=== PATIENT | female | born 1950 | race African-American/Black ===

== ENCOUNTER 2017-10-28 17:43 | Inpatient (IN) | payer MEDICARE ==
[2017-10-28 18:59] LABS: Hematocrit 33 % (35-47); Hemoglobin 11.3 g/dl (12.0-16.0); Mean Corpuscular HGB Conc 34 g/dl (31-36); Mean Corpuscular Hemoglobin 32 pg (27-31); Mean Corpuscular Volume 93 fL (80-97); Mean Platelet Volume 8.4 um3 (7.4-10.4); Platelet Count 236 10^3/ul (150-450); Red Blood Count 3.56 10^6/ul (4.00-5.40); Red Cell Distribution Width 15 % (10.5-15); White Blood Count 10.4 10^3/ul (3.5-10.8)
[2017-10-28 19:11] LABS: EGFR Non-African American 27.1 (>60)
[2017-10-28 19:21] LABS: ABS Basophils 0.1 10^3/ul (0-0.2); ABS Eosinophils 0 10^3/ul (0-0.6); ABS Lymphocytes 2.4 10^3/ul (1.0-4.8); ABS Monocytes 1.4 10^3/ul (0-0.8); ABS Neutrophils 6.5 10^3/ul (1.5-7.7); ABS Nucleated RBC 0.1 10^3/ul; Eosinophil % 0.4 % (0-6); Lymphocyte % 23.1 % (25-47); Nucleated Red Blood Cells % 0.8
[2017-10-28] MEDS ORDERED: NS 0.9% 1000 ML* 1,000 ML IV ONE ×3 (19:27→19:38)
--- NOTE | 2017-10-28 19:38 | RAD ---
INDICATION: Chest pain. COMPARISON: Comparison is made with a prior study from September 14, 2007. TECHNIQUE: A portable view of the chest was obtained. FINDINGS: The heart appears mildly enlarged. The lungs are hyperinflated. There is mild diffuse prominence of the interstitial markings. No pleural effusion is seen. There is a pleural-based density in the left midlung which may be artifactual. IMPRESSION: 1. FINDINGS SUGGESTIVE OF MILD CONGESTIVE HEART FAILURE. 2. POSSIBLE PLEURAL-BASED DENSITY IN THE LEFT MIDLUNG. RECOMMEND PA AND LATERAL CHEST FILMS FOR FURTHER EVALUATION.
[2017-10-28] MEDS ORDERED: Iodixanol* (CONTRAST) 320 MG/ML 100 ML SDV IV ONE (19:47)
--- NOTE | 2017-10-28 19:47 | RAD ---
INDICATION: Altered mental status. COMPARISON: There are no prior studies available for comparison. TECHNIQUE: Contiguous axial sections of the brain were obtained from the skull base to the vertex without contrast. FINDINGS: The ventricles, cisterns and sulci are within normal limits. No significant focal abnormality or mass effect is seen. There is no evidence for hemorrhage. There are multiple lytic lesions present throughout the calvarium. The visualized portion of the paranasal sinuses and mastoid air cells appear clear. IMPRESSION: 1. NO EVIDENCE FOR ACUTE INTRACRANIAL ABNORMALITY. 2. MULTIPLE LYTIC LESIONS ARE PRESENT THROUGHOUT THE CALVARIUM SUGGESTIVE OF A NEOPLASTIC PROCESSES SUCH MULTIPLE MYELOMA OR METASTATIC DISEASE.
--- NOTE | 2017-10-28 20:11 | ED ---
HPI Chest Pain - HPI Summary HPI Summary: Patient sent by primary care for evaluation of possible syncope, and AMS with possible tardive diskinesia type motions.. Patient alert and oriented, appears very dry, licking her lips repeatedly while talking. Patient herself complains of chronic bilateral lower back pain 5 months that has spread to bilateral rib pain 2 days, intermittent sternal chest tightness 3 today, syncopal episode with fall 2 nights ago. Denies injury from fall. CP described as tightness, intermittent, lasting 10-15 minutes, random onset, no radiation. Friend states patient perhaps has a little confusion, but otherwise at baseline mental status. Pt denies any new medications, SOB, fever, cough, sore throat, abdominal pain, N/V/D, change in urine or BM, . Medical history is asthma. Cardiac stress test 4 years ago. Patient has also been noncompliant with cholesterol and psych meds. Denies estrogen supplements, OCPs, recent surgery, unilateral leg pain, history of cancer. Nonsmoker, denies illegal drug use. - History of Current Complaint Chief Complaint: EDChestWallPain Time Seen by Provider: 10/28/17 18:35 Hx Obtained From: Patient Onset/Duration: Started Hours Ago, Started Days Ago, Started Weeks Ago Timing: Intermittent Initial Severity: Moderate Current Severity: Moderate Pain Intensity: 5 Pain Scale Used: 0-10 Numeric Chest Pain Location: Mid Sternal Chest Pain Radiates: No Character: Tightness Aggravating Factor(s): Nothing Alleviating Factor(s): Nothing Associated Signs and Symptoms: Positive: Chest Pain, Syncope, Back Pain - Allergy/Home Medications Allergies/Adverse Reactions: Allergies Allergy/AdvReac Type Severity Reaction Status Date / Time aspirin Allergy Unknown Verified 10/28/17 17:57 Reaction Details codeine Allergy Itching Verified 10/28/17 17:57 Home Medications: Home Medications Albuterol inh POWDER (NF) [Proair Respiclick] 2 puff INH Q6HR PRN 10/28/17 [ History Confirmed 10/28/17] Budesonide/Formote 160/4.5(NF) [Symbicort 160/4.5 (NF)] 2 puff INH BID 10/28/17 [History Confirmed 10/28/17] LORazepam TAB(*) [Ativan 0.5 MG TAB (*)] 0.5 mg PO BEDTIME PRN 10/28/17 [ History Confirmed 10/28/17] Montelukast Sodium TAB* [Singulair TAB*] 10 mg PO DAILY 10/28/17 [History Confirmed 10/28/17] PMH/Surg Hx/FS Hx/Imm Hx Endocrine/Hematology History: Denies: Hx Anticoagulant Therapy, Hx Diabetes History: Denies: Hx Dialysis Neurological History: Denies: Hx CVA - Cancer History Hx Chemotherapy: No Hx Radiation Therapy: No Infectious Disease History: No Infectious Disease History: Denies: Traveled Outside the [place] in Last 30 Days - Social History Alcohol Use: Rare Substance Use Type: Reports: None Smoking Status (MU): Never Smoked Tobacco Review of Systems Constitutional: Negative Eyes: Negative ENT: Negative Positive: Chest Pain Respiratory: Negative Gastrointestinal: Negative Genitourinary: Negative Musculoskeletal: Other Skin: Negative Neurological: Negative Psychological: Normal All Other Systems Reviewed And Are Negative: Yes Physical Exam - Summary Physical Exam Summary: Bilateral Ribs nontender to palpation. Lung sounds clear to auscultation bilaterally. Patient alert, oriented. No evidence of tardive dyskinesia type motion. Patient very dry, licking her lips every other word. Abdomen soft nontender. No peripheral edema. Triage Information Reviewed: Yes Vital Signs On Initial Exam: Initial Vitals Temp Pulse Resp BP Pulse Ox 100.1 F 107 15 134/82 98 10/28/17 17:54 10/28/17 17:54 10/28/17 17:54 10/28/17 17:54 10/28/17 17:54 Vital Signs Reviewed: Yes Appearance: Positive: Well-Appearing Skin: Positive: Warm Head/Face: Positive: Normal Head/Face Inspection Eyes: Positive: Normal Neck: Positive: Supple Respiratory/Lung Sounds: Positive: Clear to Auscultation Cardiovascular: Positive: Normal Abdomen Description: Positive: Nontender Musculoskeletal: Positive: Normal Neurological: Positive: Normal Psychiatric: Positive: Normal AVPU Assessment: Alert - [place] Coma Scale Best Eye Response: 4 - Spontaneous Best Motor Response: 6 - Obeys Commands Best Verbal Response: 5 - Oriented Coma Scale Total: 15 Diagnostics - Vital Signs Vital Signs Temp Pulse Resp BP Pulse Ox 10/28/17 17:54 100.1 F 107 15 134/82 98 - Laboratory Lab Results: Lab Results 07/26/18 07/26/18 07/26/18 Range/Units 18:46 18:46 18:46 WBC 10.4 (3.5-10.8) 10^3/ul RBC 3.56 L (4.00-5.40) 10^6/ul Hgb 11.3 L (12.0-16.0) g/dl Hct 33 L (35-47) % MCV 93 (80-97) fL MCH 32 H (27-31) pg MCHC 34 (31-36) g/dl RDW 15 (10.5-15) % Plt Count 236 (150-450) 10^3/ul MPV 8.4 (7.4-10.4) um3 Neut % (Auto) 62.4 (38-83) % Lymph % (Auto) 23.1 L (25-47) % [place] % (Auto) 13.3 H (0-7) % Eos % (Auto) 0.4 (0-6) % Baso % (Auto) 0.8 (0-2) % Absolute Neuts (auto) 6.5 (1.5-7.7) 10^3/ul Absolute Lymphs (auto) 2.4 (1.0-4.8) 10^3/ul Absolute Monos (auto) 1.4 H (0-0.8) 10^3/ul Absolute Eos (auto) 0 (0-0.6) 10^3/ul Absolute Basos (auto) 0.1 (0-0.2) 10^3/ul Absolute Nucleated RBC 0.1 10^3/ul Nucleated RBC % 0.8 D-Dimer, Quantitative (Less Than 230) ng/mL Sodium 134 L (135-145) mmol/L Potassium 3.3 L (3.5-5.0) mmol/L Chloride 93 L (101-111) mmol/L Carbon Dioxide 30 (22-32) mmol/L Anion Gap 11 (2-11) mmol/L BUN 37 H (6-24) mg/dL Creatinine 1.85 H (0.51-0.95) mg/dL Est GFR ( Amer) 32.8 (>60) Est GFR (Non-Af Amer) 27.1 (>60) BUN/Creatinine Ratio 20.0 (8-20) Glucose 108 H (70-100) mg/dL Lactic Acid 1.1 (0.5-2.0) mmol/L Calcium 16.2 H* (8.6-10.3) mg/dL Total Bilirubin 1.00 (0.2-1.0) mg/dL AST 26 (13-39) U/L ALT 13 (7-52) U/L Alkaline Phosphatase 126 H (34-104) U/L Troponin I 0.03 (<0.04) ng/mL B-Natriuretic Peptide ( - 100) pg/mL Total Protein 7.3 (6.4-8.9) g/dL Albumin 4.7 (3.2-5.2) g/dL Globulin 2.6 (2-4) g/dL Albumin/Globulin Ratio 1.8 (1-3) 10/28/17 10/28/17 Range/Units 18:46 19:43 WBC (3.5-10.8) 10^3/ul RBC (4.00-5.40) 10^6/ul Hgb (12.0-16.0) g/dl Hct (35-47) % MCV (80-97) fL MCH (27-31) pg MCHC (31-36) g/dl RDW (10.5-15) % Plt Count (150-450) 10^3/ul MPV (7.4-10.4) um3 Neut % (Auto) (38-83) % Lymph % (Auto) (25-47) % [place] % (Auto) (0-7) % Eos % (Auto) (0-6) % Baso % (Auto) (0-2) % Absolute Neuts (auto) (1.5-7.7) 10^3/ul Absolute Lymphs (auto) (1.0-4.8) 10^3/ul Absolute Monos (auto) (0-0.8) 10^3/ul Absolute Eos (auto) (0-0.6) 10^3/ul Absolute Basos (auto) (0-0.2) 10^3/ul Absolute Nucleated RBC 10^3/ul Nucleated RBC % D-Dimer, Quantitative > 1050 H (Less Than 230) ng/mL Sodium (135-145) mmol/L Potassium (3.5-5.0) mmol/L Chloride (101-111) mmol/L Carbon Dioxide (22-32) mmol/L Anion Gap (2-11) mmol/L BUN (6-24) mg/dL Creatinine (0.51-0.95) mg/dL Est GFR ( Amer) (>60) Est GFR (Non-Af Amer) (>60) BUN/Creatinine Ratio (8-20) Glucose (70-100) mg/dL Lactic Acid (0.5-2.0) mmol/L Calcium (8.6-10.3) mg/dL Total Bilirubin (0.2-1.0) mg/dL AST (13-39) U/L ALT (7-52) U/L Alkaline Phosphatase (34-104) U/L Troponin I (<0.04) ng/mL B-Natriuretic Peptide 36 ( - 100) pg/mL Total Protein (6.4-8.9) g/dL Albumin (3.2-5.2) g/dL Globulin (2-4) g/dL Albumin/Globulin Ratio (1-3) Result Diagrams: 10/28/17 18:46 10/28/17 18:46 Lab Statement: Any lab studies that have been ordered have been reviewed, and results considered in the medical decision making process. - Radiology cxr Xray Interpretation: Positive (See Comments) - Findings suggestive of mild congestive heart failure. Possible pleural based density in the left midlung. Recommend PA and lateral chest films for further evaluation - CT brain CT Interpretation: Positive (See Comments) - No evidence of acute intracranial abnormality. Multiple lytic lesions are present throughout the calvarium suggestive of a neoplastic process such as multiple myeloma or metastatic disease. CT Interpretation Completed By: Radiologist - EKG 1 Cardiac Rate: NL EKG Rhythm: Sinus Rhythm ST Segment: Non-Specific - T wave flattening in lateral leads. Ectopy: None Chest Pain Course/Dx - Course Course Of Treatment: Patient sent by primary care for evaluation of possible syncope, and AMS with possible tardive diskinesia type motions.. Patient alert and oriented, appears very dry, licking her lips repeatedly while talking. Patient herself complains of chronic bilateral lower back pain 5 months that has spread to bilateral rib pain 2 days, intermittent sternal chest tightness 3 today, syncopal episode with fall 2 nights ago. Denies injury from fall. CP described as tightness, intermittent, lasting 10-15 minutes, random onset, no radiation. Friend states patient perhaps has a little confusion, but otherwise at baseline mental status. Pt denies any new medications, SOB, fever, cough, sore throat, abdominal pain, N/V/D, change in urine or BM, . Medical history is asthma. Cardiac stress test 4 years ago. Patient has also been noncompliant with cholesterol and psych meds. Denies estrogen supplements, OCPs , recent surgery, unilateral leg pain, history of cancer. Nonsmoker, denies illegal drug use. Bilateral Ribs nontender to palpation. Lung sounds clear to auscultation bilaterally. Patient alert, oriented. No evidence of tardive dyskinesia type motion. Patient very dry, licking her lips every other word. Abdomen soft nontender. No peripheral edema. Hypercalcemic at 16.3 Elevated creatinine of 1.85. Elevated d-dimer of 1050. Hemoglobin 11.3. Mildly tachycardic initially. Vital signs and labs otherwise unremarkable. CT brain positive for lytic lesions, negative for acute process. Chest x-ray negative for acute process, potential pleural based density. Discussed patient with Dr. Freitas hospitalist and Dr. Bautista oncology. Dr. Bautista states recommends hydrating patient overnight, and starting zometta 4 mg IV in the morning when patient has positive urine output.. He also recommends deferring CT scan of chest abdomen and pelvis as patient's creatinine is 1.85. No prior creatinine level to compare to. Dr. Bautista states we can give patient heparin overnight and VQ scan can be done in the morning if we are concerned about PE or venous thrombosis due to elevated d-dimer. Admit. - Diagnoses Provider Diagnoses: Hypercalcemia Discharge - Sign-Out/Discharge Documenting (check all that apply): Patient Departure - Discharge Plan Condition: Stable Disposition: ADMITTED TO [facility] Referrals: Agustin Peterson MD [Primary Care Provider] - - Billing Disposition and Condition Condition: STABLE Disposition: Admitted to [facility]
[2017-10-28] MEDS ORDERED: Enoxaparin(*) 60 MG/0.6 ML SYR SUBCUT ONE (20:34)
[2017-10-29] MEDS ORDERED: Albuterol HFA INHALER* 8 gm MDI INH PRN (01:07)
[2017-10-29] MEDS ORDERED: LORazepam TAB(*) 0.5 MG PO PRN (01:07)
[2017-10-29] MEDS ORDERED: Melatonin 3 MG TAB PO PRN (01:10)
[2017-10-29] MEDS ORDERED: Acetaminophen TAB* 325 MG PO PRN (01:10)
[2017-10-29] MEDS ORDERED: Ondansetron ODT TAB* 4 MG PO PRN (01:10)
[2017-10-29] MEDS ORDERED: Ibuprofen TAB* 400 MG PO PRN (01:11)
--- NOTE | 2017-10-29 02:05 | HP ---
H&P (Free Text) History and Physical: PCP: Giovanna Peterson MD Date/Time: 10/29/2017 0030 CC: lethargy HPI: Mrs Neel Nolasco is a 67YO female HX asthma, depression in remission, & anxiety who presents with lethargy and progressive back & B rib pain since May 2017. She saw her PCP at that time and was referred to outpatient PT & urgent care nurse practitioner which initially helped. She then went to visit her homeland in [place] from the end of June through the end of August and upon returning to the [place] notes her pain has become progressively worse. She saw her PCP today and was advised to be evaluated at [facility]. She also admits to an unintentional 20# weight loss during this timeframe. Pain is worse with movement, but nothing seeming to make any lasting improvement. She has been having difficulty with constipation and mild SOB, but denies F/C, sweats, N/V/D, abnormal bleeding or other issues. ED evaluation was most notable for hypercalcemia at 16.2 confirmed with recheck at 15.8 for which admission consult was made. I requested CT of the brain WO which confirmed multiple lytic lesions concerning for neoplastic process. In light of this review of her CXR is suspicious for lytic lesions in the L humeral head. Shawna Bautista MD hem/onc was consulted by ED and advised against any further radiologic work up, recommending IVF hydration. As she has admitted to atypical chest discomfort, mild SOB, and her d-dimer is > 1050 she was given 1mg/kg enoxaparin SQ and a V/Q scan is ordered for the AM. PMedHx asthma depression, in remission anxiety Ambulatory Orders Albuterol inh POWDER (NF) [Proair Respiclick] 2 puff INH Q6HR PRN 10/28/17 Budesonide/Formote 160/4.5(NF) [Symbicort 160/4.5 (NF)] 2 puff INH BID 10/28/17 LORazepam TAB(*) [Ativan 0.5 MG TAB (*)] 0.5 mg PO BEDTIME PRN 10/28/17 Montelukast Sodium TAB* [Singulair TAB*] 10 mg PO DAILY 10/28/17 Allergies aspirin Allergy (Verified 10/28/17 17:57) Unknown Reaction Details codeine Allergy (Verified 10/28/17 17:57) Itching PSurgHx laparoscopic uterine myomectomy 1991 SocHx: quit smoking ~40 years ago, rare alcohol, no recreational drugs; , 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 alone; 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; full code status FamHx: negative for cancer ROS: as above, otherwise reviewed and all were negative vitals: Vital Signs Temp 37.8 C 10/28/17 17:54 Pulse 96 10/28/17 20:31 Resp 20 10/28/17 20:31 BP 137/81 10/28/17 20:31 Pulse Ox 99 10/28/17 20:31 Intake & Output 10/28/17 10/28/17 10/29/17 11:59 23:59 11:59 Intake Total 1999 Balance 1999 Weight 57.153 kg Intake: IV Fluids 1000 IVPB 1000 Constitutional: NAD, normally developed, well-nourished black female HEENM: atraumatic; sclera/conjunctiva: anicteric/clear; hearing: clinically intact; oropharynx: clear, mucosa moist Neck: soft tissue: normal; thyroid: normal Pulmonary: clear to auscultation bilaterally, good aeration, no accessory muscle use CV: RR/RR, normal S1S2, no carotid bruit, no jugular venous distention, 2+ B DP/ PT, no edema Abdominal: soft, non-distended, non-tender, no rebound/guarding/rigidity, normoactive bowel sounds, no hepatosplenomegaly or masses, no costovertebral angle tenderness Musculoskeletal: general: grossly intact, non-tender Integumental: normal appearance and texture of exposed skin Psychiatric orientation: AA&O to PPS affect: calm mood: pleasant eye contact: good content: reliable responses: mildly slowed insight: good Testing: Lab Results 10/28/17 10/28/17 10/28/17 Range/Units 18:46 18:46 18:46 WBC 10.4 (3.5-10.8) 10^3/ul RBC 3.56 L (4.00-5.40) 10^6/ul Hgb 11.3 L (12.0-16.0) g/dl Hct 33 L (35-47) % MCV 93 (80-97) fL MCH 32 H (27-31) pg MCHC 34 (31-36) g/dl RDW 15 (10.5-15) % Plt Count 236 (150-450) 10^3/ul MPV 8.4 (7.4-10.4) um3 Neut % (Auto) 62.4 (38-83) % Lymph % (Auto) 23.1 L (25-47) % [place] % (Auto) 13.3 H (0-7) % Eos % (Auto) 0.4 (0-6) % Baso % (Auto) 0.8 (0-2) % Absolute Neuts (auto) 6.5 (1.5-7.7) 10^3/ul Absolute Lymphs (auto) 2.4 (1.0-4.8) 10^3/ul Absolute Monos (auto) 1.4 H (0-0.8) 10^3/ul Absolute Eos (auto) 0 (0-0.6) 10^3/ul Absolute Basos (auto) 0.1 (0-0.2) 10^3/ul Absolute Nucleated RBC 0.1 10^3/ul Nucleated RBC % 0.8 D-Dimer, Quantitative (Less Than 230) ng/mL Sodium 134 L (135-145) mmol/L Potassium 3.3 L (3.5-5.0) mmol/L Chloride 93 L (101-111) mmol/L Carbon Dioxide 30 (22-32) mmol/L Anion Gap 11 (2-11) mmol/L BUN 37 H (6-24) mg/dL Creatinine 1.85 H (0.51-0.95) mg/dL Est GFR ( Amer) 32.8 (>60) Est GFR (Non-Af Amer) 27.1 (>60) BUN/Creatinine Ratio 20.0 (8-20) Glucose 108 H (70-100) mg/dL Lactic Acid 1.1 (0.5-2.0) mmol/L Calcium 16.2 H* (8.6-10.3) mg/dL Total Bilirubin 1.00 (0.2-1.0) mg/dL AST 26 (13-39) U/L ALT 13 (7-52) U/L Alkaline Phosphatase 126 H (34-104) U/L Troponin I 0.03 (<0.04) ng/mL B-Natriuretic Peptide ( - 100) pg/mL Total Protein 7.3 (6.4-8.9) g/dL Albumin 4.7 (3.2-5.2) g/dL Globulin 2.6 (2-4) g/dL Albumin/Globulin Ratio 1.8 (1-3) 10/28/17 10/28/17 10/28/17 Range/Units 18:46 19:43 19:43 WBC (3.5-10.8) 10^3/ul RBC (4.00-5.40) 10^6/ul Hgb (12.0-16.0) g/dl Hct (35-47) % MCV (80-97) fL MCH (27-31) pg MCHC (31-36) g/dl RDW (10.5-15) % Plt Count (150-450) 10^3/ul MPV (7.4-10.4) um3 Neut % (Auto) (38-83) % Lymph % (Auto) (25-47) % [place] % (Auto) (0-7) % Eos % (Auto) (0-6) % Baso % (Auto) (0-2) % Absolute Neuts (auto) (1.5-7.7) 10^3/ul Absolute Lymphs (auto) (1.0-4.8) 10^3/ul Absolute Monos (auto) (0-0.8) 10^3/ul Absolute Eos (auto) (0-0.6) 10^3/ul Absolute Basos (auto) (0-0.2) 10^3/ul Absolute Nucleated RBC 10^3/ul Nucleated RBC % D-Dimer, Quantitative > 1050 H (Less Than 230) ng/mL Sodium (135-145) mmol/L Potassium (3.5-5.0) mmol/L Chloride (101-111) mmol/L Carbon Dioxide (22-32) mmol/L Anion Gap (2-11) mmol/L BUN (6-24) mg/dL Creatinine (0.51-0.95) mg/dL Est GFR ( Amer) (>60) Est GFR (Non-Af Amer) (>60) BUN/Creatinine Ratio (8-20) Glucose (70-100) mg/dL Lactic Acid (0.5-2.0) mmol/L Calcium 15.8 H* (8.6-10.3) mg/dL Total Bilirubin (0.2-1.0) mg/dL AST (13-39) U/L ALT (7-52) U/L Alkaline Phosphatase (34-104) U/L Troponin I (<0.04) ng/mL B-Natriuretic Peptide 36 ( - 100) pg/mL Total Protein (6.4-8.9) g/dL Albumin (3.2-5.2) g/dL Globulin (2-4) g/dL Albumin/Globulin Ratio (1-3) 10/28/17 10/28/17 10/29/17 Range/Units 21:15 21:15 00:18 WBC (3.5-10.8) 10^3/ul RBC (4.00-5.40) 10^6/ul Hgb (12.0-16.0) g/dl Hct (35-47) % MCV (80-97) fL MCH (27-31) pg MCHC (31-36) g/dl RDW (10.5-15) % Plt Count (150-450) 10^3/ul MPV (7.4-10.4) um3 Neut % (Auto) (38-83) % Lymph % (Auto) (25-47) % [place] % (Auto) (0-7) % Eos % (Auto) (0-6) % Baso % (Auto) (0-2) % Absolute Neuts (auto) (1.5-7.7) 10^3/ul Absolute Lymphs (auto) (1.0-4.8) 10^3/ul Absolute Monos (auto) (0-0.8) 10^3/ul Absolute Eos (auto) (0-0.6) 10^3/ul Absolute Basos (auto) (0-0.2) 10^3/ul Absolute Nucleated RBC 10^3/ul Nucleated RBC % D-Dimer, Quantitative (Less Than 230) ng/mL Sodium (135-145) mmol/L Potassium (3.5-5.0) mmol/L Chloride (101-111) mmol/L Carbon Dioxide (22-32) mmol/L Anion Gap (2-11) mmol/L BUN (6-24) mg/dL Creatinine (0.51-0.95) mg/dL Est GFR ( Amer) (>60) Est GFR (Non-Af Amer) (>60) BUN/Creatinine Ratio (8-20) Glucose (70-100) mg/dL Lactic Acid (0.5-2.0) mmol/L Calcium (8.6-10.3) mg/dL Total Bilirubin (0.2-1.0) mg/dL AST (13-39) U/L ALT (7-52) U/L Alkaline Phosphatase (34-104) U/L Troponin I 0.03 0.03 (<0.04) ng/mL B-Natriuretic Peptide 37 ( - 100) pg/mL Total Protein (6.4-8.9) g/dL Albumin (3.2-5.2) g/dL Globulin (2-4) g/dL Albumin/Globulin Ratio (1-3) ECG, personally reviewed: sinus tachycardia rate 101, diffuse ST-T flattening CXR, personally reviewed: IMPRESSION: 1. FINDINGS SUGGESTIVE OF MILD CONGESTIVE HEART FAILURE. 2. POSSIBLE PLEURAL-BASED DENSITY IN THE LEFT MIDLUNG. RECOMMEND PA AND LATERAL CHEST FILMS FOR FURTHER EVALUATION. CT brain WO, personally reviewed: IMPRESSION: 1. NO EVIDENCE FOR ACUTE INTRACRANIAL ABNORMALITY. 2. MULTIPLE LYTIC LESIONS ARE PRESENT THROUGHOUT THE CALVARIUM SUGGESTIVE OF A NEOPLASTIC PROCESSES SUCH MULTIPLE MYELOMA OR METASTATIC DISEASE. Impression: 67F HX asthma presents with findings of hypercalcemia, diffuse lytic lesion of the calvarum, & diffuse bony pain highly suspicious for neoplastic process DIAGNOSIS & PLAN Primary hypercalcemia of malignancy : Shawna Bautista MD hem/onc consulted by ED, advised IVF hydration & will evaluate in AM : pain control atypical chest discomfort, mild SOB, & elevated d-dimer : unable to perform CTA 2nd renal function : 1mg/kg enoxaparin SQ : V/Q scan in AM CKD stg 4, suspect acute on chronic : IVFs & trend : avoid nephrotoxic agents Secondary asthma : continue home regimen anxiety : lorazepam 0.5mg PO Q8H PRN Admission Rational: Inpatient for hem/onc evaluation not anticipated to be complete in order to allow discharge w/i 48h DVTp: enoxaparin SQ Code Status: full HCP: Joe Shaikh
[2017-10-29] MEDS: traMADol TAB* 50 MG PO PRN ×2 (03:04→10:57)
[2017-10-29] MEDS: NS 0.9% 1000 ML* 1,000 ML IV SCH ×2 (05:03→21:28)
[2017-10-29] MEDS: Omeprazole CAP* 20 MG PO SCH (05:52)
[2017-10-29 06:27] LABS: Hematocrit 26 % (35-47); Hemoglobin 9.2 g/dl (12.0-16.0); Mean Corpuscular HGB Conc 35 g/dl (31-36); Mean Corpuscular Hemoglobin 32 pg (27-31); Mean Corpuscular Volume 92 fL (80-97); Mean Platelet Volume 7.7 um3 (7.4-10.4); Platelet Count 177 10^3/ul (150-450); Red Blood Count 2.88 10^6/ul (4.00-5.40); Red Cell Distribution Width 15 % (10.5-15); White Blood Count 7.6 10^3/ul (3.5-10.8)
[2017-10-29 06:44] LABS: EGFR Non-African American 32.1 (>60)
[2017-10-29] MEDS: Mometasone/Formoter 200/5 MDI INH SCH ×2 (08:02→20:14)
--- NOTE | 2017-10-29 09:33 | RAD ---
Indication: Chest tightness, mild shortness of breath, elevated d-dimer. Comparison: October 28, 2017 chest radiograph. Technique: Following administration of 10.900 mCi xenon-133 by inhalation anterior and posterior ventilation images were obtained. Following the administration of 6.400 mCi of Tc-99m macroaggregated albumin, perfusion images were obtained in multiple projections. Report: The ventilation pattern is uniform with evidence for bilateral air trapping. Negative for segmental or subsegmental perfusion defects. IMPRESSION: #. No scintigraphic evidence for pulmonary embolism. #. Bilateral air trapping consistent with obstructive lung disease.
--- NOTE | 2017-10-29 10:32 | RAD ---
INDICATION: Follow-up to chest x-ray October 28, 2017. This earlier examination suggested pleural-based left chest masses. Lytic lesions on CT brain. COMPARISON: Chest x-ray October 28, 2017; CT brain 7 26,000 TECHNIQUE: PA and lateral dual-energy views were obtained. FINDINGS: Bones/Soft Tissues: There are apparent areas of lytic change in the osseous structures. Cardiomediastinal: The cardiomediastinal silhouette is normal. Lungs: There are peripheral masses in the left mid lower lung field. There is underlying chronic interstitial change.. There are chronic interstitial lung changes Pleura: There are no pleural effusions. Other: None IMPRESSION: LEFT CHEST MASSES. LYTIC OSSEOUS LESIONS.
[2017-10-29] MEDS: Docusate CAP* 100 MG PO SCH ×2 (10:40→21:25)
[2017-10-29] MEDS: Montelukast Sodium TAB* 10 MG PO SCH (10:40)
[2017-10-29] MEDS: KCL 20 MEQ/100 ML IVPREMIX* 20 MEQ/100 ML BAG IV SCH ×2 (10:40→15:55)
--- NOTE | 2017-10-29 10:49 | PN ---
Subjective Date of Service: 10/29/17 Interval History: HOSPITALIST PROGRESS NOTE Patient seen and examined at bedside. Care reviewed and d/w Gemma Bess RN. She feels a little better this AM. States her body aches are less intense, denies CP or palpitations. Describes >6 months of body aches she associated with exercise. She retired recently and is making arrangements to move back to [facility]. Was there from June to August and unfortunately her 96yo mother passed during her visit. She states she's grieving and not eating well, and attributed her weight loss to that. ROS - 14 point ROS performed and all pertinent negative and positive findings as above. Family History: Unchanged from Admission Social History: Unchanged from Admission Past Medical History: Unchanged from Admission Objective Active Medications: Acetaminophen (Tylenol Tab*) 650 mg PO Q6H PRN PRN Reason: FEVER/PAIN Albuterol (Ventolin Hfa Inhaler*) 2 puff INH Q6H PRN PRN Reason: SHORTNESS OF BREATH Last Admin: 10/29/17 03:03 Dose: 2 puff Docusate Sodium (Colace Cap*) 200 mg PO BID [facility]INA Sodium Chloride (Ns 0.9% 1000 Ml*) 1,000 mls @ 150 mls/hr IV PER RATE YINA Last Admin: 10/29/17 05:03 Dose: 150 mls/hr Potassium Chloride (Potassium Chloride 20 Meq/100 Ml Ivpremix*) 20 meq in 100 mls @ 50 mls/hr IV Q2H YINA Stop: 10/29/17 12:59 Ibuprofen (Motrin Tab*) 400 mg PO Q8H PRN PRN Reason: PAIN Lorazepam (Ativan Tab(*)) 0.5 mg PO Q6H PRN PRN Reason: ANXIETY Melatonin (Melatonin) 3 mg PO BEDTIME PRN; Protocol PRN Reason: Sleep Mometasone Furoate/Formoterol Fumar (Dulera 200/5 Mdi*) 2 puff INH BID YINA; Protocol Last Admin: 10/29/17 08:02 Dose: 2 puff Montelukast Sodium (Singulair Tab*) 10 mg PO DAILY [facility]INA Omeprazole (Prilosec Cap*) 20 mg PO DAILY@0600 YINA Last Admin: 10/29/17 05:52 Dose: 20 mg Ondansetron HCl (Zofran Odt Tab*) 4 mg PO Q6H PRN PRN Reason: n/v Tramadol HCl (Ultram*) 50 mg PO Q6H PRN PRN Reason: PAIN Last Admin: 10/29/17 03:04 Dose: 50 mg Vital Signs - 8 hr 10/29/17 10/29/17 10/29/17 02:55 03:04 05:04 Temperature 98.1 F Pulse Rate 86 Respiratory 12 12 14 Rate Blood Pressure 131/75 (mmHg) O2 Sat by Pulse 97 Oximetry Oxygen Devices in Use Now: None Appearance: Plesant lady lying in bed in NAD. Eyes: No Scleral Icterus Ears/Nose/Mouth/Throat: Mucous Membranes Moist Neck: Trachea Midline Respiratory: Symmetrical Chest Expansion and Respiratory Effort, Clear to Auscultation Cardiovascular: NL Sounds; No Murmurs; No JVD, RRR Abdominal: NL Sounds; No Tenderness; No Distention Neurological: Alert and Oriented x 3, NL Muscle Strength and Tone Result Diagrams: 10/29/17 06:17 10/29/17 06:17 Assess/Plan/Problems-Billing Assessment: Mrs Neel Nolasco is a 67yo F with PMH of depression, anxiety, asthma, who presents with months of body aches, back and ribs pain, 20 pound weight loss, found to have hypercalcemia, likely secondary to multiple myeloma. - Patient Problems (1) Hypercalcemia Comment: - Probably secondary to multiple myeloma. - Continue IVF and add Zoledronic acid. - Awaiting Onc evaluation. (2) Multiple myeloma Comment: - Her presentation with hypercalcemia, lytic lesions, anemia, renal failure, is very suggestive of MM. - Patient states she had "issues with white cells 20 years ago" and was offered a bone marrow biopsy, but declined it. - Check SPEP/UPEP. - Awaiting Oncology consultation. (3) Hypokalemia Comment: - Replete. (4) Hypomagnesemia Comment: - Replete. (5) TEE (acute kidney injury) Comment: - Secondary to probable MM. - Continue to monitor. (6) D-dimer, elevated Comment: - Likely secondary to malignancy. - V/Q scan negative for PE. Check LE doppler to r/o DVT. (7) DVT prophylaxis Comment: - SQ heparin. (8) Full code status Status and Disposition: Inpatient.
[2017-10-29] MEDS ORDERED: ZOLEDRONIC ACID IVPB ONE (10:56)
[2017-10-29] MEDS ORDERED: Magnesium Sulfate IV* 3 GM in NS 0.9% 100 ML* 100 ML IVPB ONE (10:56)
[2017-10-29] MEDS ORDERED: NS 0.9% IVPB ONE (10:56)
--- NOTE | 2017-10-29 12:40 | RAD ---
INDICATION: Malignancy, recent trip and leg pain evaluate for DVT. COMPARISON: Comparison is made with a prior study from November 07, 2014. TECHNIQUE: Multiple real-time, color flow and Doppler tracings of both lower extremities were obtained. FINDINGS: The common femoral, femoral, profunda femoral and popliteal veins all demonstrate normal compressibility, augmentation with compression and phasic response with respiration. The posterior tibial and peroneal veins demonstrate normal compressibility and augmentation with compression. IMPRESSION: NO EVIDENCE FOR DEEP VENOUS THROMBOSIS.
[2017-10-29] MEDS: Heparin VIAL(*) 5000 UNITS/ML VIAL (FIVE THOUSAND) SUBCUT SCH ×2 (16:08→21:25)
[2017-10-29] MEDS ORDERED: Zoledronic Acid* 4 MG in NS 0.9% 100 ML* 95 ML IVPB ONE (19:01)
--- NOTE | 2017-10-29 23:15 | CONS ---
CONSULTATION REPORT: DATE OF CONSULT: 10/29/17 REASON FOR CONSULTATION: Hypercalcemia. HISTORY OF PRESENT ILLNESS: Ms. Neel Nolasco is a 67-year-old female with history of multiple medical problems, but she reports has generally been in good health. She exercises regularly and remains very active. She lives alone and is independent of her ADLs and IADLS. She describes progressive back and rib pain as well as groin pain going back to May 2017. She noticed exercising when trying to do new weights. Per history from Dr. Freitas, she had a referral to PT and a chiropractor that initially helped. In June, she went to [place], [place] origin for a visit, she returned to [place] in August. Over the past 2 months, the pain has gotten significantly worse. She had followup with Dr. Peterson on the 10/28/17, and was advised that she go to the emergency room to be evaluated. She also describes weight loss of 20 pounds, constipation, decreased urination, dry mouth. She came to the emergency room and noted to have a calcium of 16.2 associated with a creatinine of 1.85, potassium of 3.3, and sodium of 134. Liver function tests showed an albumin of 4.7 with a globulin 2.6 and normal LFTs. She had a CT scan of the head that showed no acute parenchymal brain disease, but she did have multiple lytic lesions in the skull. She was admitted, placed on IV fluids , developed shortness of breath and had a V/Q scan as well as a lower extremity Doppler that were both negative for thrombosis. In the hospital, she has been stable. On IV fluid, she has had an increase in urine output, 400 from 7 a.m. to 3 p.m. and 600 mL from 1500 to 1900. She is incoherent on exam and is quite meandering. She denies being in pain at this time, but says her pain did go to 10/10, before coming to the hospital. She ate lunch and she plans to eat dinner. PAST MEDICAL HISTORY (PER CHART): 1. Asthma. 2. Depression. 3. Anxiety. PAST SURGICAL HISTORY: Laparoscopic uterine myomectomy in 1991. MEDICATIONS: On admission: 1. Symbicort 160/4.5 two puffs b.i.d. 2. Lorazepam 0.5 mg at bedtime p.r.n. 3. Singulair 10 mg daily. ALLERGIES: ASPIRIN and CODEINE. FAMILY HISTORY: Not obtainable today. SOCIAL HISTORY: Remote smoking, quit 40 years ago. She denies drinking. She is and lives alone, no children. 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 REVIEW OF SYSTEMS: As per HPI, otherwise negative. Cannot do complete review of systems with her current mental status. PHYSICAL EXAM: Temperature 98.4, BP 111/59, pulse rate 89, respirations 15, O2 sat 97%. HEENT: Mucosa dry. No lesions, no lymphadenopathy, no JVD. Lungs: Clear to auscultation. Heart: Regular rate and rhythm. S1, S2. No murmur, rubs or gallops. Breasts: No nodules. No axillary lymphadenopathy. Nodes: No peripheral lymphadenopathy. Abdomen: Mild distention. No hepatosplenomegaly. Good bowel sounds. Nontender. Extremities: She got pulses x4. No edema. Normal skin turgor and tone. Neurologic: She is oriented to being in the hospital, but is not a coherent historian at this moment. She is moving all 4 extremities and following commands without difficulty, grossly nonfocal. LABORATORY DATA: As noted above, Ca after hydration came down slightly at 14.2 and creatinine went to 1.6. Potassium is 2.9 this morning. Hemoglobin is 9.2 with normal MCV, platelets 177, white count 7.6 with predominantly neutrophils. Review of an old blood work shows an episode in 2012, which showed AST of 800 and had fairly extensive serologic workup at that time including multiple infectious studies. There is no discharge summary, so she would now presume with an outpatient workup. We will need to obtain further records next business day. ASSESSMENT AND PLAN: A 67-year-old female who presents with hypercalcemia and lytic lesions on a CT scan of the skull, highly suspicious for hypercalcemia of malignancy. Differential diagnosis includes multiple myeloma, could be metastatic solid tumor including renal cell cancer, lung cancer, and metastatic breast cancer unlikely without blastic components. She has responded well to hydration with increased urine output, slight decrease in creatinine. 1. Continue IV fluids, 150 cc now with normal saline is reasonable. 2. Agree with Zometa,given today. 3. Follow potassium and magnesium, expect further decrease as she is hydrated. 4. We will obtain a CT scan of the chest, abdomen, and pelvis, noncontrast to evaluate for both solid tumor and additional lytic lesions. 5. Serologic studies today, beta-2 microglobulin, protein electrophoresis, kappa and lambda light chains as well as a PTH. 6. We will need bone marrow biopsy if CT scan is unrevealing on Wednesday 7. Continue to follow closely during hospitalization. [id number]/[facility] #: [id number] [facility]
[2017-10-30] MEDS: NS 0.9% 1000 ML* 1,000 ML IV SCH (04:15)
[2017-10-30] MEDS: Omeprazole CAP* 20 MG PO SCH (06:00)
[2017-10-30] MEDS: Heparin VIAL(*) 5000 UNITS/ML VIAL (FIVE THOUSAND) SUBCUT SCH ×2 (06:00→13:14)
[2017-10-30 06:53] LABS: Hematocrit 26 % (35-47); Mean Corpuscular HGB Conc 35 g/dl (31-36); Mean Corpuscular Hemoglobin 32 pg (27-31); Mean Corpuscular Volume 92 fL (80-97); Mean Platelet Volume 7.7 um3 (7.4-10.4); Platelet Count 171 10^3/ul (150-450); Red Blood Count 2.83 10^6/ul (4.00-5.40); Red Cell Distribution Width 15 % (10.5-15); White Blood Count 6.7 10^3/ul (3.5-10.8)
--- NOTE | 2017-10-30 07:08 | RAD ---
INDICATION: Hypercalcemia. Lytic lesions. COMPARISON: CT brain October 28, 2017; chest x-ray October 29, 2017; pelvic sonogram September 25, 2011 TECHNIQUE: Noncontrast axial source images were obtained from the thoracic inlet to the symphysis pubis. Oral contrast was administered. Coronal and sagittal reconstructed images were acquired. CHEST FINDINGS: Neck/thyroid: The visualized neck to include the thyroid appear normal. Chest wall: There are diffuse lytic foci throughout the axial and appendicular skeleton. There is no supraclavicular, infraclavicular, or axillary lymphadenopathy. Lungs : There is compression atelectasis in the right lung base. The remaining lung tinsley are essentially clear. Cardiomediastinal structures: The heart is normal in size. There is no pericardial effusion. There is no evidence of aortic aneurysm or dissection. The pulmonary vessels appear normal. There is no mediastinal or hilar adenopathy. The esophagus appears normal. Pleura : There are numerous, lateral, pleural-based metastatic lesions measure up to 3.5 x 2.3 cm. There is a small right-sided pleural effusion. ABDOMINAL/PELVIC FINDINGS: Liver: No focal abnormality on noncontrast evaluation. Gallbladder: There are no calcified gallstones. There is no evidence of wall thickening or pericholecystic fluid. Spleen: No focal abnormalities on noncontrast evaluation. Pancreas: Limited evaluation without contrast. No discrete masses are seen. Adrenal glands: There is no evidence of adrenal mass. Kidneys: No renal mass is identified. There are several tiny punctate calculi in the left kidney. Adenopathy: There is no evidence of adenopathy by size criteria. Fluid collections: There are no free or localized fluid collections. Vessels:The aorta and IVC appear normal GI tract: There are no acute CT bowel findings. There is no obstruction. The stomach and small bowel appear normal. The lower GI tract is unremarkable. Pelvic organs: There calcified fibroids. There is a solid left adnexal mass or less likely this is an exophytic fibroid. This mass measures 4 cm and would be better evaluated with pelvic sonography Bladder: There are no bladder masses. Abdominal and pelvic soft tissues: The extraperitoneal abdominal and pelvic soft tissues appear normal.. Osseous structures: There are extensive lytic lesions throughout the axial and appendicular skeleton. 1 lytic lesions involve T11 which represents an expansile lesion and may lead to canal and right foraminal stenosis. There is also expansile lesion of the proximal right femur with cortical breakthrough into the lesser trochanter. This patient is at risk for complete fracture with ambulation. Extensive sacral lytic lesions are also noted. IMPRESSION: 1. Extensive lytic lesions of the axial and appendicular skeleton. The patient is at risk for displaced right hip fracture. 2. Pleural-based metastasis. 3. Small right-sided effusion 4. Left adnexal mass versus exophytic fibroid.
[2017-10-30 07:13] LABS: EGFR Non-African American 37.1 (>60)
[2017-10-30 07:43] LABS: ABS Basophils 0 10^3/ul (0-0.2); ABS Eosinophils 0 10^3/ul (0-0.6); ABS Lymphocytes 1.5 10^3/ul (1.0-4.8); ABS Monocytes 0.6 10^3/ul (0-0.8); ABS Neutrophils 4.5 10^3/ul (1.5-7.7); ABS Nucleated RBC 0 10^3/ul; Eosinophil % 0.5 % (0-6); Lymphocyte % 23.1 % (25-47); Nucleated Red Blood Cells % 0.4
[2017-10-30] MEDS: Montelukast Sodium TAB* 10 MG PO SCH (07:45)
[2017-10-30] MEDS: Docusate CAP* 100 MG PO SCH (07:45)
[2017-10-30] MEDS: Mometasone/Formoter 200/5 MDI INH SCH ×2 (08:14→20:03)
[2017-10-30] MEDS ORDERED: Morphine INJ* 2 MG/ML 1 ML SYRINGE (TWO MG - NEW SYRINGE VERSION) IV PRN (09:24)
--- NOTE | 2017-10-30 09:28 | PN ---
Progress Note - Progress Note Date of Service: 10/30/17 SOAP: Subjective: still in pain this am but has to date been unwilling to take pain meds. Objective: Vital Signs Temp Pulse Resp BP Pulse Ox 98.6 F 80 16 130/65 96 10/30/17 07:34 10/30/17 08:17 10/30/17 07:34 10/30/17 07:34 10/30/17 08:17 sitting up clearly in pain (refusing pain meds) op dry dec bs bases II/ christie soft nt +Bs no le edema no pedro A+O x 3 Laboratory Results - last 24 hr 10/29/17 10/29/17 10/30/17 06:17 09:52 06:34 WBC 6.7 RBC 2.83 L Hgb 9.0 L Hct 26 L MCV 92 MCH 32 H MCHC 35 RDW 15 Plt Count 171 MPV 7.7 Neut % (Auto) 67.7 Lymph % (Auto) 23.1 L [place] % (Auto) 8.4 H Eos % (Auto) 0.5 Baso % (Auto) 0.3 Absolute Neuts (auto) 4.5 Absolute Lymphs (auto) 1.5 Absolute Monos (auto) 0.6 Absolute Eos (auto) 0 Absolute Basos (auto) 0 Absolute Nucleated RBC 0 Nucleated RBC % 0.4 Sodium Potassium Chloride Carbon Dioxide Anion Gap BUN Creatinine Est GFR ( Amer) Est GFR (Non-Af Amer) BUN/Creatinine Ratio Glucose Calcium Magnesium 1.5 L PTH Intact 1.3 Calcium (PTH Intact) 14.1 H* 10/30/17 06:34 WBC RBC Hgb Hct MCV MCH MCHC RDW Plt Count MPV Neut % (Auto) Lymph % (Auto) [place] % (Auto) Eos % (Auto) Baso % (Auto) Absolute Neuts (auto) Absolute Lymphs (auto) Absolute Monos (auto) Absolute Eos (auto) Absolute Basos (auto) Absolute Nucleated RBC Nucleated RBC % Sodium 137 Potassium 3.2 L Chloride 105 Carbon Dioxide 27 Anion Gap 5 BUN 23 Creatinine 1.41 H Est GFR ( Amer) 44.9 Est GFR (Non-Af Amer) 37.1 BUN/Creatinine Ratio 16.3 Glucose 100 Calcium 12.3 H Magnesium PTH Intact Calcium (PTH Intact) Acetaminophen (Tylenol Tab*) 650 mg PO Q6H PRN PRN Reason: FEVER/PAIN Albuterol (Ventolin Hfa Inhaler*) 2 puff INH Q6H PRN PRN Reason: SHORTNESS OF BREATH Last Admin: 10/29/17 03:03 Dose: 2 puff Docusate Sodium (Colace Cap*) 200 mg PO BID [facility] Last Admin: 10/30/17 07:45 Dose: 200 mg Heparin Sodium (Porcine) (Heparin Vial(*)) 5,000 units SUBCUT Q8HR [facility] Last Admin: 10/30/17 06:00 Dose: 5,000 units Sodium Chloride (Ns 0.9% 1000 Ml*) 1,000 mls @ 150 mls/hr IV PER RATE [facility] Last Admin: 10/30/17 04:15 Dose: 150 mls/hr Ibuprofen (Motrin Tab*) 400 mg PO Q8H PRN PRN Reason: PAIN Lorazepam (Ativan Tab(*)) 0.5 mg PO Q6H PRN PRN Reason: ANXIETY Melatonin (Melatonin) 3 mg PO BEDTIME PRN; Protocol PRN Reason: Sleep Mometasone Furoate/Formoterol Fumar (Dulera 200/5 Mdi*) 2 puff INH BID [facility]; Protocol Last Admin: 10/30/17 08:14 Dose: 2 puff Montelukast Sodium (Singulair Tab*) 10 mg PO DAILY [facility] Last Admin: 10/30/17 07:45 Dose: 10 mg Morphine Sulfate (Morphine Inj (Syringe)*) 2 mg IV Q4H PRN PRN Reason: PAIN Omeprazole (Prilosec Cap*) 20 mg PO DAILY@0600 [facility] Last Admin: 10/30/17 06:00 Dose: 20 mg Ondansetron HCl (Zofran Odt Tab*) 4 mg PO Q6H PRN PRN Reason: n/v Tramadol HCl (Ultram*) 50 mg PO Q6H PRN PRN Reason: PAIN Last Admin: 10/29/17 10:57 Dose: 50 mg Assessment: 67 yo F presenting with hypercalcemia and diffuse bony lesions as well as pleural based lesions. In discussing with Dr. Vargas he feels that the pleural based lesions are metastatic and not expansive from the ribs. Concerningly she has a lesion in her right hip that is impending fracture. I have discussed with ortho and the primary team, as well as the patient that I have recommended consideration of rodding this lesion for stability, which will also give us tissue for a diagnosis. She seems to be in agreement with this but would like to discuss with a friend. This will be done at a specialty center. hypercalcemia: improving, got zometa last evening can consider another dose of lasix
--- NOTE | 2017-10-30 09:29 | PN ---
Progress Note - Progress Note Date of Service: 10/30/17 Note: Pt seen and examined. Large lytic lesion in right hip spanning neck and trochanter. Impending fracture. Will transfer to [place] for definitive management.
--- NOTE | 2017-10-30 12:36 | PN ---
Subjective Date of Service: 10/30/17 Interval History: HOSPITALIST PROGRESS NOTE Patient seen and examined at bedside. Care reviewed and d/w Tamy Serrano RN. She c/o diffuse pain, especially around her rib cage. Upset about the news about her diagnosis, but states she has a strong gatito. Family History: Unchanged from Admission Social History: Unchanged from Admission Past Medical History: Unchanged from Admission Objective Active Medications: Acetaminophen (Tylenol Tab*) 650 mg PO Q6H PRN PRN Reason: FEVER/PAIN Albuterol (Ventolin Hfa Inhaler*) 2 puff INH Q6H PRN PRN Reason: SHORTNESS OF BREATH Last Admin: 10/29/17 03:03 Dose: 2 puff Docusate Sodium (Colace Cap*) 200 mg PO BID [facility] Last Admin: 10/30/17 07:45 Dose: 200 mg Heparin Sodium (Porcine) (Heparin Vial(*)) 5,000 units SUBCUT Q8HR [facility] Last Admin: 10/30/17 06:00 Dose: 5,000 units Sodium Chloride (Ns 0.9% 1000 Ml*) 1,000 mls @ 150 mls/hr IV PER RATE [facility] Last Admin: 10/30/17 04:15 Dose: 150 mls/hr Ibuprofen (Motrin Tab*) 400 mg PO Q8H PRN PRN Reason: PAIN Lorazepam (Ativan Tab(*)) 0.5 mg PO Q6H PRN PRN Reason: ANXIETY Melatonin (Melatonin) 3 mg PO BEDTIME PRN; Protocol PRN Reason: Sleep Mometasone Furoate/Formoterol Fumar (Dulera 200/5 Mdi*) 2 puff INH BID [facility]; Protocol Last Admin: 10/30/17 08:14 Dose: 2 puff Montelukast Sodium (Singulair Tab*) 10 mg PO DAILY [facility] Last Admin: 10/30/17 07:45 Dose: 10 mg Morphine Sulfate (Morphine Inj ((Syringe))*) 2 mg IV Q4H PRN PRN Reason: PAIN Omeprazole (Prilosec Cap*) 20 mg PO DAILY@0600 [facility] Last Admin: 10/30/17 06:00 Dose: 20 mg Ondansetron HCl (Zofran Odt Tab*) 4 mg PO Q6H PRN PRN Reason: n/v Tramadol HCl (Ultram*) 50 mg PO Q6H PRN PRN Reason: PAIN Last Admin: 10/29/17 10:57 Dose: 50 mg Vital Signs - 8 hr 10/30/17 10/30/17 10/30/17 07:34 08:00 08:17 Temperature 98.6 F Pulse Rate 98 80 Respiratory 16 16 Rate Blood Pressure 130/65 (mmHg) O2 Sat by Pulse 99 96 Oximetry Oxygen Devices in Use Now: None Appearance: Pleasant lady sitting up in bed in NAD. Eyes: No Scleral Icterus Ears/Nose/Mouth/Throat: Mucous Membranes Moist Neck: Trachea Midline Respiratory: Symmetrical Chest Expansion and Respiratory Effort, Clear to Auscultation Cardiovascular: RRR - Normal S1 and S2, +SM Neurological: Alert and Oriented x 3, NL Muscle Strength and Tone Result Diagrams: 10/30/17 06:34 10/30/17 06:34 Assess/Plan/Problems-Billing Assessment: Mrs Neel Nolasco is a 67yo F with PMH of depression, anxiety, asthma, who presents with months of body aches, back and ribs pain, 20 pound weight loss, found to have hypercalcemia, likely secondary to multiple myeloma. - Patient Problems (1) Hypercalcemia Comment: - Continue IVF, received Zoledronic acid yesterday and Ca is 12.3. - Onc evaluation appreciated - hypercalcemia of malignancy secondary to multiple myeloma vs metastatic solid tumor. (2) Bone metastasis Comment: - Unclear primary at this time, but CT chest/abd/pelvis showed extensive lytic lesions of the axial and appendicular skeleton. Her right hip is at very high risk for fracture and Orthopedics recommended transfer to a higher level of care - contacted [facility] and [place] - no bed available at this time. (3) Hypokalemia Comment: - Replete. (4) Hypomagnesemia Comment: - Replete. (5) TEE (acute kidney injury) Comment: - Continue to monitor. (6) D-dimer, elevated Comment: - Likely secondary to malignancy. - V/Q scan and LE doppler negative. (7) DVT prophylaxis Comment: - SQ heparin. (8) Full code status Status and Disposition: Inpatient.
[2017-10-30] MEDS ORDERED: Magnesium Sulfate IV* 3 GM in NS 0.9% 100 ML* 100 ML IVPB ONE (12:41)
[2017-10-30] MEDS ORDERED: Polyethylene Glycol 3350* 17 GM PACKET PO SCH (14:00)
--- NOTE | 2017-10-30 18:00 | CONS ---
CC: PCP CONSULTATION REPORT: DATE OF CONSULT: 10/30/17 CHIEF COMPLAINT: Right hip lesion. HISTORY OF PRESENT ILLNESS: Briefly, Estrellita Bustamante is a 67-year-old female who has had multiple medical issues and complains of more pain in the back and her ribs, worse for the last 10 days that has been going on since May at least. She states that she went to a chiropractor initially since she went to [place] where she is from and returned to [place] in August. In the last 2 months, pain has gotten a lot worse. She followed with her PCP and went to the emergency room. She has had a recent weight loss of 20 pounds, constipation, urinary retention, and dry mouth. She had an elevated calcium on admission with an elevated creatinine and recently had a CT chest, abdomen, and pelvis, which demonstrated multiple lytic lesions. There is particularly 1 large one in her right femoral neck. At this point, I was consulted. She states that she has no real hip pain. She is able to ambulate, but very slowly. She has more pain in the chest wall that has been bothering her. She denies any numbness or tingling. No bony pain elsewhere. PAST MEDICAL HISTORY: Significant for asthma; depression, which is in remission ; anxiety. PAST SURGICAL HISTORY: Laparoscopic uterine myomectomy in 1991. MEDICATIONS: 1. Tylenol. 2. Albuterol. 3. Colace. 4. Heparin. 5. Ibuprofen. 6. Lorazepam. 7. Melatonin. 8. Dulera. 9. Montelukast. 10. Morphine. 11. Omeprazole. 12. Ondansetron. 13. Sodium chloride. 14. Tramadol. ALLERGIES: ASPIRIN and CODEINE. FAMILY HISTORY: Negative. SOCIAL HISTORY: She quit smoking about 40 years ago. She has rare alcohol use. No recreational drugs. She is , lives alone. She is from [place]. 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 She is a full code status. REVIEW OF SYSTEMS: A 14-point review of systems was reviewed with patient, significant for weight loss, pain in the chest wall. She also complains of constipation, decreased urination, dry mouth. No shortness of breath and otherwise remainder of systems negative. PHYSICAL EXAM: Temperature of 98.6, heart rate of 80, respiratory rate of 16, oxygen saturation 96% on room air, blood pressure 130/65. She is in no distress. She is well developed, well nourished. She is alert and oriented x3. She is sitting at the edge of her bed eating breakfast. I will not make her weight bear. Examination of her hip demonstrates flexion to about 120. She had some mild discomfort with internal and external rotation, but she is nontender to palpation. Her calf is soft and nontender. She is able to flex up her knee. Dorsiflexion and plantarflexion of her ankle with good strength. She is sensate to light touch about the first dorsal web space, medial, lateral, dorsal , and plantar foot. 2+ PT pulse. DIAGNOSTIC STUDIES: CT scan actually was reviewed that demonstrates large lytic lesion in the right femoral neck, which is an impending fracture. WBC 6.7 , HCT 26, Plt 171, Na 137, K 3.2, Chloride 105, Co2 27, BUN 23, Cr 1.41, Glucose 100 ASSESSMENT AND PLAN: She has an impending fracture of the right hip. I did not order formal films as we are going to transfer her to another facility that can manage tumor patients. She will likely need some sort of hemiarthroplasty versus proximal femoral replacement and we will likely obtain a biopsy to determine the diagnosis. The current working diagnosis is possibly melanoma. The wild life photographer and internal medicine doctors were available at the time of my consultation and we discussed transferring her to a facility that is more capable of handling patients requiring orthopedic oncologist. I have reached out to one of my colleagues and we will help to facilitate transfer. I reviewed the plan with the patient and her team. [id number]/[facility] #: [id number] [facility]
[2017-10-30 18:18] VITALS: BP 132/70
--- NOTE | 2017-10-31 04:47 | DS ---
CC: PCP; Dr. Bautista; Dr. Ferro; Dr. Hollins; Dr. Clifton, [facility] DISCHARGE SUMMARY: DATE OF ADMISSION: 10/29/17 DATE OF DISCHARGE: 10/30/17 DISCHARGE DIAGNOSES: 1. Diffuse metastatic osseus disease (multiple myeloma versus metastatic solid tumor). 2. Hypercalcemia of malignancy. 3. Elevated D-dimer. 4. Anemia. 5. 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 6. Hypokalemia. 7. Hypomagnesemia. SECONDARY DIAGNOSES: 1. Depression. 2. Anxiety. 3. Asthma. MEDICATIONS: At the time of transfer: 1. Acetaminophen 650 mg p.o. q.6 hours p.r.n. pain or fever. 2. Albuterol HFA 2 puffs inhaled q.6 hours p.r.n. shortness of breath and wheezing. 3. Colace 200 mg p.o. b.i.d. 4. Heparin 5000 units subcutaneously q.8 hours. 5. Ibuprofen 400 mg q.8 hours p.r.n. pain. 6. Lorazepam 0.5 mg p.o. q.6 hours p.r.n. anxiety. 7. Magnesium sulfate 3 g IV x1 dose. 8. Melatonin 3 mg p.o. at bedtime p.r.n. insomnia. 9. Mometasone/formoterol 200/5, two puffs inhaled b.i.d. 10. Montelukast 10 mg p.o. daily. 11. Morphine 2 mg IV q.4 hours p.r.n. severe pain. 12. Normal saline 150 mL an hour. 13. Omeprazole 20 mg p.o. daily at 6 a.m. 14. Ondansetron ODT 4 mg p.o. q.6 hours p.r.n. nausea and vomiting. 15. MiraLAX 17 g p.o. b.i.d. 16. Tramadol 50 mg p.o. q.6 hours p.r.n. pain. 17. Zoledronic acid 3 mg IV x1 dose. HOSPITAL COURSE: Mrs. Neel Nolasco is a 67-year-old lady with a past medical history as stated above that has had progressive back pain since last Thanksgi, progressing, with limb and rib pain. The patient is from [place] and she was there from June to August, preparing leaving arrangements, as she w as planning to move back there, but unfortunately, her mother passed at that time. The patient lost 20 pounds, but she attributed that to the grief from losing her mother. Her pain continued to progre ss and she was found to be hypercalcemic with a calcium 16.2. She was referred to the emergency room for further evaluation and her laboratory tests revealed normocytic anemia, with a hemoglobin of 9, a positive D-dimer greater than 10,050, hypokalemia of 3.3, with a creatinine of 1.8, calcium of 16.2. The patient was admitted for further evaluation and treatment. Initial chest x-ray showed a possible pleural based density in the left mid lung. CT of the brain keke wed no evidence for acute intracranial abnormality, but multiple lytic lesions present throughout the calvarium, suggestive of a neoplastic process such as multiple myeloma or metastatic disease. A rep eat 2-view x-ray showed left chest masses with lytic osseous lesions. As the patient had a positive D-dimer, she underwent a V/Q scan and this showed no evidence for pulmo nary embolism. She also had bilateral lower extremity Doppler that was negative for DVT. The patient was seen in consultation by Oncology (Dr. Bautista) and his impression was that the patient p resented with hypercalcemia of malignancy and the differential diagnosis included multiple myeloma or a metastatic solid tumor including renal cell carcinoma, lung cancer, or metastatic breast cancer. He recommended hydration, zoledronic acid, repletion of potassium and magnesium, and a CT of the ches t, abdomen and pelvis to evaluate for both solid tumor and additional lytic lesions. The patient also had an SPEP and UPEP sent, but the results are pending at the time of this dictation , and so far only her beta-2 microglobulin returned elevated at 13.2 (normal 1.2 to 2.7). Her PTH wa s 1.3. CT of the chest, abdomen, and pelvis showed extensive lytic lesions of the axial and appendicular ske leton, with 1 lytic lesion involving T11, which represents expansile lesion and may lead to canal and right foraminal stenosis. There is also expansile lesion of the proximal right femur with cortical breakthrough into the lesser trochanter. This patient is at risk for complete fracture with ambulati on. Extensive sacral lytic lesions are also noted. There are numerous lateral row pleural based meta static lesions measuring up to 3.5 x 2.3 cm with small right- sided pleural effusion. There is a dominga id left adnexal mass or less likely an exophytic fibroid measuring 4 cm. The patient was seen in followup by Oncology (Dr. Ferro). She was very concerned with the patient 's right hip lesion and Dr. Ferro discussed with the orthopedist and the recommendation was for ro dding of this lesion for stability, which will also give us tissue for diagnosis. Dr. Hollins recomme nded transfer to a higher level of care. Unfortunately, no beds were available at [facility], so the patient was accepted and transferred to [facility]. She is medically stable f or discharge at this time. PHYSICAL EXAMINATION: Vital Signs: Temperature 100.3, heart rate is 90, respiratory rate is 18, oxy gen saturation is 99% on room air, blood pressure is 126/57. General: The patient is a pleasant eld erly lady, lying in bed, in no acute distress. Pupils are equal. Moist mucous membranes. CVS: Nor mal S1 and S2. Regular rate and rhythm with systolic murmur. Chest: Breath sounds present bilatera lly with no added sounds. Abdomen: Soft. Bowel sounds are present. Extremities: No edema. Neuro: She is alert and oriented x3, able to move all 4 extremities. STATUS WHILE IN THE HOSPITAL: Inpatient. DISPOSITION: To [facility]. Please keep in mind this is a summarized version of this patient's hospital stay. If you need more in formation, please feel free to call me at [phone] or please obtain the full medical records. TIME SPENT: Appropriately 50 minutes were spent to complete this discharge. [id number]/CPS #: [id number]
== END 2017-10-30 18:15 | disposition short-term general hospital (02) | DRG 641 ==
LOC: ED 17:43 → MED 10-29 01:06
PROVIDERS: ADMIT Hospitalist; ATTEND Internal Medicine
DX: E83.52 Hypercalcemia (principal); C79.51 Secondary malignant neoplasm of bone; N18.4 Chronic kidney disease, stage 4 (severe); N17.9 Acute kidney failure, unspecified; C90.00 Multiple myeloma not having achieved remission; J90 Pleural effusion, not elsewhere classified; G89.29 Other chronic pain; M54.9 Dorsalgia, unspecified; R40.2362 Coma scale, best motor response, obeys commands, at arrival to emergency department; R40.2142 Coma scale, eyes open, spontaneous, at arrival to emergency department; R40.2252 Coma scale, best verbal response, oriented, at arrival to emergency department; J45.909 Unspecified asthma, uncomplicated; F41.9 Anxiety disorder, unspecified; F32.5 Major depressive disorder, single episode, in full remission; K59.00 Constipation, unspecified; R33.9 Retention of urine, unspecified; D64.9 Anemia, unspecified; E87.6 Hypokalemia; E83.42 Hypomagnesemia; R79.1 Abnormal coagulation profile; E27.9 Disorder of adrenal gland, unspecified; Z91.19 Patient's noncompliance with other medical treatment and regimen; Z88.6 Allergy status to analgesic agent; Z88.5 Allergy status to narcotic agent; Z72.89 Other problems related to lifestyle; Z87.891 Personal history of nicotine dependence; Z79.01 Long term (current) use of anticoagulants; Z79.51 Long term (current) use of inhaled steroids
CPT/HCPCS: 36415; 70450; 71045; 71046; 71250; 74176; 78582; 80048; 80053; 82232; 82310; 82784; 83605; 83735; 83880; 83883; 83970; 84155; 84156; 84165; 84166; 84484; 85025; 85027; 85379; 86334; 93005; 93970; 94640; 99233; 99284; A9270-GY; A9540; A9558; J1644; J3475; J3480; J3489

== ENCOUNTER 2017-11-18 15:03 | Inpatient (IN) | payer MEDICARE ==
[2017-11-18] MEDS ORDERED: NS 0.9% 1000 ML*IV.FLUID IV ONE (15:10)
[2017-11-18] MEDS ORDERED: Cefepime(*) 2 GM in NS 0.9% 50 ML* 50 ML IVPB ONE (15:10)
[2017-11-18] MEDS ORDERED: Levofloxacin 750 MG IVPREMIX(* 750 MG/150 ML BAG IVPB ONE (15:10)
[2017-11-18] MEDS ORDERED: Acetaminophen TAB* 325 MG PO ONE (15:11)
[2017-11-18] MEDS ORDERED: NS 0.9% 50 ML* 50 ML ONE (15:29)
[2017-11-18 15:44] LABS: Hematocrit 19 % (35-47); Hemoglobin 6.8 g/dl (12.0-16.0); Mean Corpuscular HGB Conc 35 g/dl (31-36); Mean Corpuscular Hemoglobin 32 pg (27-31); Mean Corpuscular Volume 92 fL (80-97); Mean Platelet Volume 7.8 um3 (7.4-10.4); Platelet Count 88 10^3/ul (150-450); Red Blood Count 2.11 10^6/ul (4.00-5.40); Red Cell Distribution Width 14 % (10.5-15); White Blood Count 2.7 10^3/ul (3.5-10.8)
--- NOTE | 2017-11-18 15:49 | ED ---
Complex/Multi-Sys Presentation - HPI Summary HPI Summary: This is scribe Ras Esparza documenting for attending Huber Aguila MD. This patient is a 67 year old F presenting to [facility] with a chief complaint of fever. Patient reports hyperkalemia, tachycardia, anemia, coughing, and multiple myeloma. She has not been given any medications. Patient arrived from [facility] for recent rehab of R leg that was placed there at [facility]. I, Dr. Aguila, personally performed the services described in this documentation as scribed in my presence, and it is both accurate and complete. - History Of Current Complaint Hx Obtained From: Patient Hx From Patient Unobtainable Due To: Altered Mental Status Onset/Duration: Still Present Associated Signs And Symptoms: Positive: Cough, Fever, Other - Hyperkalemia, tachycardia, anemia, and multiple myeloma - Allergies/Home Medications Allergies/Adverse Reactions: Allergies Allergy/AdvReac Type Severity Reaction Status Date / Time aspirin Allergy Unknown Verified 10/28/17 17:57 Reaction Details codeine Allergy Itching Verified 10/28/17 17:57 Home Medications: Home Medications Acetaminophen [Acetaminophen Extra Strength] 1,000 mg PO TID PRN 11/18/17 [ History Confirmed 11/18/17] Lidocaine PATCH 5%* [Lidoderm 5% Patch*] 1 patch TRANSDERM DAILY 11/18/17 [ History Confirmed 11/18/17] Rosuvastatin (NF) [Crestor (NF)] 5 mg PO DAILY 11/18/17 [History Confirmed 11/18] traMADol TAB* [Ultram*] 50 mg PO Q4HR PRN 11/18/17 [History Confirmed 11/18/17] PMH/Surg Hx/FS Hx/Imm Hx Endocrine/Hematology History: Denies: Hx Anticoagulant Therapy, Hx Diabetes Cardiovascular History: Denies: Hx Hypertension Respiratory History: Reports: Hx Asthma Denies: Hx Pneumonia History: Denies: Hx Dialysis Sensory History: Reports: Hx Cataracts - developing, Hx Contacts or Glasses Denies: Hx Hearing Aid Opthamlomology History: Reports: Hx Cataracts - developing, Hx Contacts or Glasses Neurological History: Denies: Hx CVA Psychiatric History: Reports: Hx Anxiety, Hx Depression, Hx Bipolar Disorder - with a few hospitalizations - Cancer History Cancer Type, Location and Year: LYTIC LESIONS. Hx Chemotherapy: No Hx Radiation Therapy: No - Surgical History Surgery Procedure, Year, and Place: fibroid removal 1991 Infectious Disease History: No Infectious Disease History: Denies: Traveled Outside the [place] in Last 30 Days - Family History Known Family History: Positive: Cardiac Disease, Hypertension, Diabetes - Social History Occupation: Retired Alcohol Use: Occasionally Substance Use Type: Reports: None Smoking Status (MU): Never Smoked Tobacco Review of Systems Positive: Fever, Other - Multiple myeloma. Hyperkalemia. Positive: Other - Tachycardia. Anemia. Positive: Cough, Other All Other Systems Reviewed And Are Negative: Yes Physical Exam - Summary Physical Exam Summary: VITAL SIGNS: Reviewed. GENERAL: Patient is an elderly, ill-looking, and fragile FEMALE who is lying comfortable in the stretcher. Patient is not in any acute respiratory distress. Afebrile. HEAD AND FACE: No signs of trauma. No ecchymosis, hematomas or skull depressions. No sinus tenderness. EYES: PERRLA, EOMI x 2, No injected conjunctiva, no nystagmus. EARS: Hearing grossly intact. Ear canals and tympanic membranes are within normal limits. MOUTH: Oral mucosa is dry. NECK: Supple, trachea is midline, no adenopathy, no JVD, no carotid bruit, no c- spine tenderness, neck with full ROM. CHEST: Symmetric, no tenderness at palpation LUNGS: Bilateral cracks in both bases of lungs. CVS: Regular rate and rhythm, S1 and S2 present, no murmurs or gallops appreciated. ABDOMEN: Soft, non-tender. No signs of distention. No rebound no guarding, and no masses palpated. Bowel sounds are normal. EXTREMITIES: FROM in all major joints. Good healing wound in R leg. NEURO: Alert and oriented x 3. No acute neurological deficits. Speech is normal and follows commands. SKIN: Dry and warm Triage Information Reviewed: Yes Vital Signs On Initial Exam: Initial Vitals Temp Pulse Resp BP Pulse Ox 102.2 F 123 22 107/72 98 11/18/17 15:05 11/18/17 15:05 11/18/17 15:05 11/18/17 15:05 11/18/17 15:05 Vital Signs Reviewed: Yes Diagnostics - Vital Signs Vital Signs Temp Pulse Resp BP Pulse Ox 11/18/17 15:45 122 19 112/72 100 11/18/17 15:10 97 11/18/17 15:07 125 36 119/69 96 11/18/17 15:05 102.2 F 123 22 107/72 98 - Laboratory Lab Results: Lab Results 11/18/17 Range/Units 15:25 WBC 2.7 L (3.5-10.8) 10^3/ul RBC 2.11 L (4.00-5.40) 10^6/ul Hgb 6.8 L (12.0-16.0) g/dl Hct 19 L (35-47) % MCV 92 (80-97) fL MCH 32 H (27-31) pg MCHC 35 (31-36) g/dl RDW 14 (10.5-15) % Plt Count 88 L (150-450) 10^3/ul MPV 7.8 (7.4-10.4) um3 Neut % (Auto) Pending Lymph % (Auto) Pending [place] % (Auto) Pending Eos % (Auto) Pending Baso % (Auto) Pending Absolute Neuts (auto) Pending Absolute Lymphs (auto) Pending Absolute Monos (auto) Pending Absolute Eos (auto) Pending Absolute Basos (auto) Pending Absolute Nucleated RBC Pending Nucleated RBC % Pending ESR Pending Result Diagrams: 11/18/17 15:25 11/18/17 15:25 Lab Statement: Any lab studies that have been ordered have been reviewed, and results considered in the medical decision making process. - Radiology Chest X-Ray Radiology Interpretation Completed By: Radiologist - 16:00. SUSPECT DEVELOPING RIGHT BASAL INFILTRATE. NO ADDITIONAL INTERVAL CHANGES. ED Physician has reviewed this report. - EKG No standard instances Cardiac Rate: Tachycardia - 118 BPM EKG Rhythm: Sinus Rhythm EKG Interpretation: 15:31. No ST elevation. Similar to EKG from 10/28/2017. Complex Multi-Symp Course/Dx Assessment/Plan: This patient is a 67 year old F presenting to [facility] with a chief complaint of fever. Patient reports hyperkalemia, tachycardia, anemia, coughing, and multiple myeloma. She has not been given any medications. Patient arrived from [facility] for recent rehab of R leg that was placed there at [facility]. Test results show WBC counts of 2.7, hemoglobin of 6.8, hematocrit of 19, and platelets 88. Neutrophils at 17, bands 25. Fibrinogen is 483. CRP is 73.79. Procalcitonin 3.5. Urinalysis contaminated. Chest X-ray: SUSPECT DEVELOPING RIGHT BASAL INFILTRATE. NO ADDITIONAL INTERVAL CHANGES. EKG: Tachycardia [address]No [address] elevation. Similar to EKG from 10/28/2017. Initially, the patient was reported with sepsis. Therefore , we used the sepsis protocol with IB fluids 30 CCs per kg, and she was started with Cefepime and Levofloxacin. Since the patient seems to be anemic, I started her with low transfusion. I did not do a rectal exam since the patient was neutropenic. At this time, I discussed the case with Dr. Aida Ferro from Oncology, and she admitted the patient for further workup and management. - Diagnoses Provider Diagnoses: Pneumonia, Sepsis, Symptomatic anemia - Critical Care Time Critical Care Time: 75-104 min - 104 minutes Discharge - Sign-Out/Discharge Documenting (check all that apply): Patient Departure - admitted by Dr. Aida Ferro from Oncology - Discharge Plan Condition: Stable Disposition: ADMITTED TO [facility]
[2017-11-18] MEDS ORDERED: CEFEPIME* 2 GM in Dextrose* 50 ml IV ONE (16:00)
[2017-11-18 16:03] LABS: Urine Appearance Cloudy; Urine Blood Negative (Negative); Urine Color Yellow; Urine Ketones Negative (Negative); Urine Protein 1+(30 mg/dL) (Negative); Urine Red Blood Cell Trace(0-2/hpf) (Absent); Urine Specific Gravity 1.012 (1.010-1.030); Urine Urobilinogen Negative (Negative); Urine White Blood Cell 2+(11-20/hpf) (Absent)
--- NOTE | 2017-11-18 16:03 | RAD ---
INDICATION: Fever. History of diffuse metastasis COMPARISON: Chest x-ray June 01, 2017; CT chest /abdomen/pelvis June 01, 2017 TECHNIQUE: An AP portable view obtained at 1538 hours is submitted. FINDINGS: Bones/Soft Tissues: There are no acute bony findings. The patient has known multiple lytic lesions Cardiomediastinal: Cardiac silhouette is unchanged. Lungs: There is diffuse interstitial lung disease. There are findings suspicious for developing infiltrate in the medial right lung base Pleura: There are multiple pleural-based masses as better evaluated on concurrent CT imaging. Other: None IMPRESSION: SUSPECT DEVELOPING RIGHT BASAL INFILTRATE. NO ADDITIONAL INTERVAL CHANGES.
[2017-11-18 16:15] LABS: EGFR Non-African American 87.5 (>60)
[2017-11-18 16:53] LABS: ABS Basophils 0 10^3/ul (0-0.2); ABS Eosinophils 0 10^3/ul (0-0.6); ABS Lymphocytes 0.7 10^3/ul (1.0-4.8); ABS Monocytes 0.4 10^3/ul (0-0.8); ABS Neutrophils 1.6 10^3/ul (1.5-7.7)
[2017-11-18 16:59] LABS: INR 1.35 (0.77-1.02)
[2017-11-18 17:01] LABS: ABS Basophils 0 10^3/ul (0-0.2)
[2017-11-18] MEDS ORDERED: LORazepam TAB(*) 0.5 MG PO PRN (17:15)
--- NOTE | 2017-11-18 17:34 | ADMNOTE ---
Admission Primary Care Provider: Agustin Peterson Chief Complaint: cough and fever History of Present Illness: History and Physical 67 yo F well known to our service from recent hospital stay with newly diagnosed multiple myeloma presenting with cough and fever and found to have pneumonia. Estrellita was recently admitted to [facility] in October with anemia, hypercalcemia and diffuse lytic lesions, with an unstable lytic lesion in the right femur. She was transfered to [facility] and had ORIF and stabilization. 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 She had imaging of her spine and apparently had palliative XRT to T11-L1 while there. She was discharged to [facility] where she has been since. She saw Dr. Bautista 3 days ago and was feeling ok then, with good breathing and improving strength. The next day she reports developing cough and fevers. She went to see Dr. Peterson in his office today and was referred to the emergency room. Here she was noted to be febrile and tachycardic. CXR is notable for new right sided infiltrates. She reports that the cough is nonproductive. She does have some SOB with it but denies chest pain. She denies dysuria (though has a dirty urine). She feels better since getting fluids and IV antibiotics. She reports that her hip is healing quite well. Notably her manual differential reports neutropenia, though the auto differential does not and I am awaiting confirmation by pathology. She has received cefepime and levaquin. Allergies/Medications Medication: Home Medications Medication Instructions Recorded Confirmed Type Albuterol inh POWDER (NF) [Proair 2 puff INH Q6HR PRN 10/28/17 11/18/17 History Respiclick] Budesonide/Formote 160/4.5(NF) 2 puff INH BID 10/28/17 11/18/17 History [Symbicort 160/4.5 (NF)] LORazepam TAB(*) [Ativan 0.5 MG 0.5 mg PO BEDTIME PRN 10/28/17 11/18/17 History TAB (*)] Montelukast Sodium TAB* [Singulair 10 mg PO DAILY 10/28/17 11/18/17 History TAB*] Acetaminophen [Acetaminophen Extra 1,000 mg PO TID PRN 11/18/17 11/18/17 History Strength] Lidocaine PATCH 5%* [Lidoderm 5% 1 patch TRANSDERM DAILY 11/18/17 11/18/17 History Patch*] Rosuvastatin (NF) [Crestor (NF)] 5 mg PO DAILY 11/18/17 11/18/17 History traMADol TAB* [Ultram*] 50 mg PO Q4HR PRN 11/18/17 11/18/17 History Allergies/Adverse Reactions: Allergies Allergy/AdvReac Type Severity Reaction Status Date / Time aspirin Allergy Unknown Verified 10/28/17 17:57 Reaction Details codeine Allergy Itching Verified 10/28/17 17:57 History - Past Medical History Other History: anxiety. bipolar do. asthma. ORIF R hip. MM. uterine myomectomy - Family History Other Family History: no cancer - Social History Hx Alcohol Use: No Hx Tobacco Use: Yes - remote, mild Review of Systems - Review of Systems Constitutional Symptoms: Positive: Fatigue, Fever Dermatology: Positive: Normal HEENT: Positive: Normal Eyes: Positive: Normal Thyroid: Positive: Normal Pulmonary: Positive: Cough, Shortness of Breath, Asthma Cardiology: Positive: Normal Gastroenterology: Positive: Normal Genital - Urinary: Positive: Normal Musculoskeletal: Positive: Other - improving right hip pain Endocrinology: Positive: Normal Hematologic/Lymphatic: Positive: Anemia Neurology: Positive: Normal Psychiatry: Positive: Anxiety Physical Exam - Physical Exam Physical Examination: Vital Signs Temp Pulse Resp BP Pulse Ox 100.8 F 115 18 109/67 96 11/18/17 17:07 11/18/17 17:07 11/18/17 17:07 11/18/17 17:07 11/18/17 17:07 lying flat in NAD perr eomi op dry dec bs on right no wheezing tachy II/ JENNIFER soft nt +bs r hip orif w stephanie, very well healing, no induration or erythema did not ambulate A+O x 3 Results - Lab Results Lab Results: 11/18/17 11/18/17 11/18/17 15:24 15:25 15:25 WBC 2.7 L RBC 2.11 L Hgb 6.8 L Hct 19 L MCV 92 MCH 32 H MCHC 35 RDW 14 Plt Count 88 L MPV 7.8 Neut % (Auto) Not Reportable Lymph % (Auto) Not Reportable [place] % (Auto) Not Reportable Eos % (Auto) Not Reportable Baso % (Auto) Not Reportable Absolute Neuts (auto) 1.6 Absolute Lymphs (auto) 0.7 L Absolute Monos (auto) 0.4 Absolute Eos (auto) 0 Absolute Basos (auto) 0 Absolute Nucleated RBC Not Reportable Immature Gran % 18 H Neutrophils % 18 L Band Neutrophils % 10 H Lymphocytes % 57 H Monocytes % 6 Eosinophils % 1 Basophils % 0 Metamyelocytes % 2 Myelocytes % 6 H Nucleated RBC % Not Reportable Abs Neuts (Manual) 0.5 L* Abs Lymphs (Manual) 1.5 Abs Monocytes (Manual) 0.2 Absolute Eos (Manual) 0 Abs Basophils (Manual) 0 Nucleated RBCs/100 WBC 0 Normal RBC Morphology Not Reportable Elliptocytes 1+ ESR 105 H INR (Anticoag Therapy) 1.35 H APTT 27.9 Fibrinogen 483.0 H Sodium Potassium Chloride Carbon Dioxide Anion Gap BUN Creatinine Est GFR ( Amer) Est GFR (Non-Af Amer) BUN/Creatinine Ratio Glucose Lactic Acid Calcium Total Bilirubin AST ALT Alkaline Phosphatase Total Creatine Kinase Troponin I C-Reactive Protein B-Natriuretic Peptide Total Protein Albumin Globulin Albumin/Globulin Ratio Procalcitonin 3.5 H Urine Color Urine Appearance Urine pH Ur Specific [place] Urine Protein Urine Ketones Urine Blood Urine Nitrate Urine Bilirubin Urine Urobilinogen Ur Leukocyte Esterase Urine WBC (Auto) Urine RBC (Auto) Ur Squamous Epith Cells Urine Bacteria Urine Glucose Urine Ascorbic Acid Blood Type Antibody Screen Crossmatch 11/18/17 11/18/17 11/18/17 15:25 15:25 15:25 WBC RBC Hgb Hct MCV MCH MCHC RDW Plt Count MPV Neut % (Auto) Lymph % (Auto) [place] % (Auto) Eos % (Auto) Baso % (Auto) Absolute Neuts (auto) Absolute Lymphs (auto) Absolute Monos (auto) Absolute Eos (auto) Absolute Basos (auto) Absolute Nucleated RBC Immature Gran % Neutrophils % Band Neutrophils % Lymphocytes % Monocytes % Eosinophils % Basophils % Metamyelocytes % Myelocytes % Nucleated RBC % Abs Neuts (Manual) Abs Lymphs (Manual) Abs Monocytes (Manual) Absolute Eos (Manual) Abs Basophils (Manual) Nucleated RBCs/100 WBC Normal RBC Morphology Elliptocytes ESR INR (Anticoag Therapy) APTT Fibrinogen Sodium 132 L D Potassium 3.6 Chloride 102 Carbon Dioxide 20 L Anion Gap 10 BUN 11 Creatinine 0.67 Est GFR ( Amer) 105.9 Est GFR (Non-Af Amer) 87.5 BUN/Creatinine Ratio 16.4 Glucose 133 H Lactic Acid 1.2 Calcium 8.9 Total Bilirubin 1.00 AST 23 ALT 15 Alkaline Phosphatase 141 H Total Creatine Kinase 32 Troponin I 0.01 C-Reactive Protein 73.79 H B-Natriuretic Peptide Total Protein 6.1 L Albumin 3.7 Globulin 2.4 Albumin/Globulin Ratio 1.5 Procalcitonin Urine Color Yellow Urine Appearance Cloudy Urine pH 5.0 Ur Specific [place] 1.012 Urine Protein 1+(30 mg/dl) A Urine Ketones Negative Urine Blood Negative Urine Nitrate Negative Urine Bilirubin Negative Urine Urobilinogen Negative Ur Leukocyte Esterase Trace A Urine WBC (Auto) 2+(11-20/hpf) A Urine RBC (Auto) Trace(0-2/hpf) Ur Squamous Epith Cells Present A Urine Bacteria 1+ A Urine Glucose 1+(50 mg/dl) A Urine Ascorbic Acid * A Blood Type Antibody Screen Crossmatch 11/18/17 11/18/17 15:25 15:25 WBC RBC Hgb Hct MCV MCH MCHC RDW Plt Count MPV Neut % (Auto) Lymph % (Auto) [place] % (Auto) Eos % (Auto) Baso % (Auto) Absolute Neuts (auto) Absolute Lymphs (auto) Absolute Monos (auto) Absolute Eos (auto) Absolute Basos (auto) Absolute Nucleated RBC Immature Gran % Neutrophils % Band Neutrophils % Lymphocytes % Monocytes % Eosinophils % Basophils % Metamyelocytes % Myelocytes % Nucleated RBC % Abs Neuts (Manual) Abs Lymphs (Manual) Abs Monocytes (Manual) Absolute Eos (Manual) Abs Basophils (Manual) Nucleated RBCs/100 WBC Normal RBC Morphology Elliptocytes ESR INR (Anticoag Therapy) APTT Fibrinogen Sodium Potassium Chloride Carbon Dioxide Anion Gap BUN Creatinine Est GFR ( Amer) Est GFR (Non-Af Amer) BUN/Creatinine Ratio Glucose Lactic Acid Calcium Total Bilirubin AST ALT Alkaline Phosphatase Total Creatine Kinase Troponin I C-Reactive Protein B-Natriuretic Peptide 55 Total Protein Albumin Globulin Albumin/Globulin Ratio Procalcitonin Urine Color Urine Appearance Urine pH Ur Specific [place] Urine Protein Urine Ketones Urine Blood Urine Nitrate Urine Bilirubin Urine Urobilinogen Ur Leukocyte Esterase Urine WBC (Auto) Urine RBC (Auto) Ur Squamous Epith Cells Urine Bacteria Urine Glucose Urine Ascorbic Acid Blood Type A Positive Antibody Screen Negative Crossmatch See Detail - Radiology Radiology Results: CXR: personally reviewed, right sided infiltrates lower lobe Assessment and Plan Impression: 67 yo F w newly diagnosed multiple myeloma sp recent R ORIF now presenting with 2 days of fevers and cough and found to have a right lower lobe pneumonia best characterized as health care acquired given that she has been hospitalized or at a SNF for the last several weeks. She is also likely neutropenic. She meets sepsis criteria with neutropenia, tachycardia, fevers and has a source ( PNA). PNA: cefepime 2g iv q8 hrs for neutropenic fevers and PNA -sputum cx -urine strep and legionella -IVFs -telemetry pancytopenia: disease related, MM transfuse for Hb <7 neutropenic precautions start neupogen 480 mcg as no reasonable response of recovery of neutrophils without it as marrow likely replaced by myeloma DVT prophylaxis: high risk, lovenox, watch platelets closely however full code
[2017-11-18 18:31] LABS: Monocytes % 11 % (0-7)
[2017-11-18 18:34] LABS: ABS Neutrophils 1.4 10^3/ul (1.5-7.7)
[2017-11-18] MEDS: Albuterol HFA INHALER* 8 gm MDI INH PRN (20:03)
[2017-11-18] MEDS: Enoxaparin(*) 40 MG/0.4 ML SYR SUBCUT SCH (20:04)
[2017-11-18] MEDS: NS 0.9% 1000 ML* 1,000 ML IV SCH (20:12)
[2017-11-19] MEDS: traMADol TAB* 50 MG PO PRN ×3 (00:15→20:21)
[2017-11-19] MEDS: Cefepime 2 GM in Dextrose(*) 2 GM/50 ML BAG IV SCH ×2 (00:16→07:38)
[2017-11-19 05:31] LABS: Hematocrit 25 % (35-47); Hemoglobin 8.9 g/dl (12.0-16.0); Mean Corpuscular HGB Conc 35 g/dl (31-36); Mean Corpuscular Hemoglobin 31 pg (27-31); Mean Corpuscular Volume 88 fL (80-97); Mean Platelet Volume 6.8 um3 (7.4-10.4); Platelet Count 73 10^3/ul (150-450); Red Blood Count 2.87 10^6/ul (4.00-5.40); Red Cell Distribution Width 16 % (10.5-15); White Blood Count 3.1 10^3/ul (3.5-10.8)
[2017-11-19 05:46] LABS: EGFR Non-African American 99.4 (>60)
[2017-11-19 06:08] LABS: ABS Basophils 0 10^3/ul (0-0.2); ABS Eosinophils 0 10^3/ul (0-0.6); ABS Lymphocytes 0.6 10^3/ul (1.0-4.8); ABS Monocytes 0.6 10^3/ul (0-0.8); ABS Neutrophils 1.8 10^3/ul (1.5-7.7); ABS Nucleated RBC 0.1 10^3/ul
[2017-11-19] MEDS: NS 0.9% 1000 ML* 1,000 ML IV SCH ×2 (07:38→16:00)
[2017-11-19] MEDS: Albuterol HFA INHALER* 8 gm MDI INH PRN ×2 (08:28→16:42)
[2017-11-19] MEDS ORDERED: Filgrastim* 480 MCG VIAL (AUTOSUB = ZARXIO*) SUBCUT SCH (09:00)
[2017-11-19 10:13] LABS: ABS Basophils 0 10^3/ul (0-0.2); ABS Neutrophils 1.1 10^3/ul (1.5-7.7); Monocytes % 5 % (0-7); Schistocytes 1+
[2017-11-19] MEDS: Lidocaine PATCH 5%* 1 PATCH TRANSDERM SCH (10:29)
[2017-11-19] MEDS: Montelukast Sodium TAB* 10 MG PO SCH (10:30)
--- NOTE | 2017-11-19 17:33 | PN ---
Progress Note - Progress Note Date of Service: 11/19/17 SOAP: Subjective: [Feeling better today since fever broke. Has non-productive cough. No dyspnea at rest. No abd pain, n/v. Fatigued.] Objective: [ Laboratory Results - last 24 hr 11/18/17 11/18/17 11/18/17 15:25 15:25 19:27 WBC 2.7 L RBC 2.11 L Hgb 6.8 L Hct 19 L MCV 92 MCH 32 H MCHC 35 RDW 14 Plt Count 88 L MPV 7.8 Neut % (Auto) Lymph % (Auto) Dawson % (Auto) Eos % (Auto) Baso % (Auto) Absolute Neuts (auto) 1.6 Absolute Lymphs (auto) 0.7 L Absolute Monos (auto) 0.4 Absolute Eos (auto) 0 Absolute Basos (auto) 0 Absolute Nucleated RBC Immature Gran % 33 H Neutrophils % 17 L Band Neutrophils % 25 H Lymphocytes % 35 Reactive Lymphs % Monocytes % 11 H Eosinophils % 0 Basophils % 0 Metamyelocytes % 2 Myelocytes % 6 H Promyelocytes % Not Reportable Nucleated RBC % Abs Neuts (Manual) 1.4 L Abs Lymphs (Manual) 1.0 Abs Monocytes (Manual) 0.3 Absolute Eos (Manual) 0 Abs Basophils (Manual) 0 Nucleated RBCs/100 WBC 0 Normal RBC Morphology Polychromasia Hypochromasia Elliptocytes 1+ Schistocytes ESR 105 H Hem Pathologist Commnt Sodium Potassium Chloride Carbon Dioxide Anion Gap BUN Creatinine Est GFR ( Amer) Est GFR (Non-Af Amer) BUN/Creatinine Ratio Glucose Lactic Acid 1.1 Calcium Total Bilirubin AST ALT Alkaline Phosphatase Total Protein Albumin Globulin Albumin/Globulin Ratio Monoscreen Blood Type A Positive Antibody Screen Negative Crossmatch See Detail 11/19/17 11/19/17 05:19 05:19 WBC 3.1 L RBC 2.87 L Hgb 8.9 L Hct 25 L MCV 88 MCH 31 MCHC 35 RDW 16 H Plt Count 73 L MPV 6.8 L Neut % (Auto) Not Reportable Lymph % (Auto) Not Reportable Dawson % (Auto) Not Reportable Eos % (Auto) Not Reportable Baso % (Auto) Not Reportable Absolute Neuts (auto) 1.8 Absolute Lymphs (auto) 0.6 L Absolute Monos (auto) 0.6 Absolute Eos (auto) 0 Absolute Basos (auto) 0 Absolute Nucleated RBC 0.1 Immature Gran % 20 H Neutrophils % 37 L Band Neutrophils % 16 H Lymphocytes % 22 L Reactive Lymphs % 15 H D Monocytes % 5 Eosinophils % 1 Basophils % 0 Metamyelocytes % Myelocytes % 2 H Promyelocytes % 2 Nucleated RBC % Not Reportable Abs Neuts (Manual) 1.1 L Abs Lymphs (Manual) 0.7 L Abs Monocytes (Manual) 0.2 Absolute Eos (Manual) 0 Abs Basophils (Manual) 0 Nucleated RBCs/100 WBC 4 H Normal RBC Morphology Not Reportable Polychromasia 1+ Hypochromasia 1+ Elliptocytes Schistocytes 1+ ESR Hem Pathologist Commnt Sodium 135 Potassium 4.0 Chloride 108 Carbon Dioxide 22 Anion Gap 5 BUN 10 Creatinine 0.60 Est GFR ( Amer) 120.3 Est GFR (Non-Af Amer) 99.4 BUN/Creatinine Ratio 16.7 Glucose 129 H Lactic Acid Calcium 8.3 L Total Bilirubin 1.40 H AST 23 ALT 12 Alkaline Phosphatase 124 H Total Protein 5.6 L Albumin 3.3 Globulin 2.3 Albumin/Globulin Ratio 1.4 Monoscreen Cancelled Blood Type Antibody Screen Crossmatch Albuterol (Ventolin Hfa Inhaler*) 2 puff INH Q6H PRN PRN Reason: SHORTNESS OF BREATH Last Admin: 11/19/17 16:42 Dose: 2 puff Enoxaparin Sodium (Lovenox(*)) 40 mg SUBCUT Q24H [facility] Last Admin: 11/18/17 20:04 Dose: 40 mg Sodium Chloride (Ns 0.9% 1000 Ml*) 1,000 mls @ 125 mls/hr IV PER RATE [facility] Last Admin: 11/19/17 16:00 Dose: 125 mls/hr Cefepime HCl 2 gm/ Dextrose 100 mls @ 200 mls/hr IVPB Q8H [facility] Last Admin: 11/19/17 15:58 Dose: 200 mls/hr Lidocaine (Lidoderm 5% Patch*) 1 patch TRANSDERM DAILY [facility] Last Admin: 11/19/17 10:29 Dose: 1 patch Lorazepam (Ativan Tab(*)) 0.5 mg PO BEDTIME PRN PRN Reason: ANXIETY Montelukast Sodium (Singulair Tab*) 10 mg PO DAILY [facility] Last Admin: 11/19/17 10:30 Dose: 10 mg Pharmacy Profile Note (Lidocaine Patch Remove*) 1 note PATCH OFF 2100 [facility] Tramadol HCl (Ultram*) 50 mg PO Q4HR PRN PRN Reason: PAIN Last Admin: 11/19/17 07:49 Dose: 50 mg Vital Signs: Temp Pulse Resp BP Pulse Ox 98.5 F 110 16 120/75 98 11/19/17 15:19 11/19/17 15:19 11/19/17 15:19 11/19/17 15:19 11/19/17 15:19 Exam: Gen: Very pleasant and ill appearing 67 yo female in NAD HEENT: MMM CV: RRR, no m/r/g Resp: diminshed breath sounds in RLL Abd: soft, nonTTP MS: healing surgical scar over R hip with stephanie in place ] Assessment: [67 yo female with multiple myeloma and associated pancytopenia admitted with fever and cough with new infiltrate on CXR. Urine cx now growing >100K EColi as well. Initial concern for neutropenia, but upon pathologist review, results are more consistent with initial automatic diff.] Plan: [1. PNA - cover for health care acquired pathogens given recent hospitalizations and SNF stay - cont Cefepime - no hypoxia, fevers improved 2. UTI - sensitivities pending, should also be covered by Cefepime 3. Multiple myeloma - has not started therapy yet as she was recovering from recent hip fx repair 4. Pathologic hip fx s/p ORIF - stephanie still in place, appears to be healing well Dispo: requires continued inpatient stay, dc back to [facility] [place] sometime early next week likely for continued rehab]
[2017-11-19] MEDS: Enoxaparin(*) 40 MG/0.4 ML SYR SUBCUT SCH (18:21)
[2017-11-19] MEDS: Lidocaine Patch REMOVE* 1 NOTE MISC PATCH OFF SCH (20:24)
[2017-11-19] MEDS ORDERED: LORazepam TAB(*) 0.5 MG PO PRN (20:44)
[2017-11-20] MEDS: NS 0.9% 1000 ML* 1,000 ML IV SCH (03:28)
[2017-11-20] MEDS: Mometasone/Formoter 200/5 MDI INH SCH ×4 (04:58→19:48)
[2017-11-20] MEDS: Albuterol HFA INHALER* 8 gm MDI INH PRN ×2 (05:05→19:47)
[2017-11-20] MEDS ORDERED: Albuterol/Ipratropium NEB.SOL* Albuterol 2.5 MG/Ipratropium 0.5 MG 3 ML ONE ×2 (05:12→10:50)
[2017-11-20 05:52] LABS: Hematocrit 26 % (35-47); Hemoglobin 9.1 g/dl (12.0-16.0); Mean Corpuscular HGB Conc 35 g/dl (31-36); Mean Corpuscular Hemoglobin 31 pg (27-31); Mean Corpuscular Volume 88 fL (80-97); Mean Platelet Volume 6.8 um3 (7.4-10.4); Platelet Count 74 10^3/ul (150-450); Red Blood Count 2.95 10^6/ul (4.00-5.40); Red Cell Distribution Width 16 % (10.5-15); White Blood Count 4.8 10^3/ul (3.5-10.8)
[2017-11-20 06:06] LABS: EGFR Non-African American 125.6 (>60)
[2017-11-20] MEDS: Albuterol/Ipratropium NEB.SOL* Albuterol 2.5 MG/Ipratropium 0.5 MG 3 ML INH PRN ×2 (09:03→17:43)
[2017-11-20] MEDS: Montelukast Sodium TAB* 10 MG PO SCH (10:09)
[2017-11-20] MEDS: LORazepam TAB(*) 0.5 MG PO PRN ×3 (10:09→18:17)
[2017-11-20] MEDS: Lidocaine PATCH 5%* 1 PATCH TRANSDERM SCH (10:10)
[2017-11-20] MEDS ORDERED: Albuterol/Ipratropium NEB.SOL* Albuterol 2.5 MG/Ipratropium 0.5 MG 3 ML INH ONE (10:40)
--- NOTE | 2017-11-20 10:50 | PN ---
Progress Note - Progress Note Date of Service: 11/20/17 SOAP: Subjective: [Had a difficult night. Increased shortness of breath. She has not received her usual LABA/ICS and has been concerned about that. Some anxiety. No additional fevers.] Objective: [ Laboratory Results - last 24 hr 11/19/17 11/20/17 11/20/17 05:19 05:43 05:43 WBC 4.8 RBC 2.95 L Hgb 9.1 L Hct 26 L MCV 88 MCH 31 MCHC 35 RDW 16 H Plt Count 74 L MPV 6.8 L Hem Pathologist Commnt Sodium 136 Potassium 4.1 Chloride 110 Carbon Dioxide 22 Anion Gap 4 BUN 10 Creatinine 0.49 L Est GFR ( Amer) 152.0 Est GFR (Non-Af Amer) 125.6 BUN/Creatinine Ratio 20.4 H Glucose 139 H Calcium 8.3 L Total Bilirubin 0.90 AST 20 ALT 12 Alkaline Phosphatase 127 H Total Protein 6.1 L Albumin 3.4 Globulin 2.7 Albumin/Globulin Ratio 1.3 Monoscreen Cancelled Vital Signs Temp Pulse Resp BP Pulse Ox 98.0 F 119 22 135/78 100 11/20/17 09:56 11/20/17 09:05 11/20/17 10:09 11/20/17 03:23 11/20/17 09:05 Albuterol (Ventolin Hfa Inhaler*) 2 puff INH Q6H PRN PRN Reason: SHORTNESS OF BREATH Last Admin: 11/20/17 05:05 Dose: 2 puff Albuterol/Ipratropium (Duoneb (Albuterol 2.5 Mg/Ipratropium 0.5 Mg)) 1 neb INH Q4H PRN PRN Reason: SOB/WHEEZING Last Admin: 11/20/17 09:03 Dose: 1 neb Albuterol/Ipratropium (Duoneb (Albuterol 2.5 Mg/Ipratropium 0.5 Mg)) 1 neb INH ONCE ONE Stop: 11/20/17 10:41 Enoxaparin Sodium (Lovenox(*)) 40 mg SUBCUT Q24H [facility] Last Admin: 11/19/17 18:21 Dose: 40 mg Cefepime HCl 2 gm/ Dextrose 100 mls @ 200 mls/hr IVPB Q8H [facility] Last Admin: 11/20/17 07:52 Dose: 200 mls/hr Lidocaine (Lidoderm 5% Patch*) 1 patch TRANSDERM DAILY [facility] Last Admin: 11/20/17 10:10 Dose: 1 patch Lorazepam (Ativan Tab(*)) 0.5 mg PO Q2H PRN PRN Reason: ANXIETY Last Admin: 11/20/17 10:09 Dose: 0.5 mg Mometasone Furoate/Formoterol Fumar (Dulera 200/5 Mdi*) 2 puff INH BID [facility]; Protocol Last Admin: 11/20/17 09:05 Dose: Not Given Montelukast Sodium (Singulair Tab*) 10 mg PO DAILY [facility] Last Admin: 11/20/17 10:09 Dose: 10 mg Pharmacy Profile Note (Lidocaine Patch Remove*) 1 note PATCH OFF 2100 [facility] Last Admin: 11/19/17 20:24 Dose: 1 note Tramadol HCl (Ultram*) 50 mg PO Q4HR PRN PRN Reason: PAIN Last Admin: 11/19/17 20:21 Dose: 50 mg Exam: Gen: Very pleasant and ill appearing 67 yo female in NAD HEENT: MMM CV: RRR, no m/r/g Resp: diminshed breath sounds in RLL, diffuse wheezing Abd: soft, nonTTP MS: healing surgical scar over R hip with stephanie in place ] Assessment: [67 yo female with multiple myeloma and associated pancytopenia admitted with fever and cough with new infiltrate on CXR. Urine cx now growing >100K EColi as well. Initial concern for neutropenia, but upon pathologist review, results are more consistent with initial automatic diff.] Plan: [1. PNA - cover for health care acquired pathogens given recent hospitalizations and SNF stay - cont Cefepime - no hypoxia, fevers improved - DuoNebs prn - use Dulera as substitute for usual Symbicort 2. UTI - EColi, sensitive to Cefepime - no urinary symptoms 3. Multiple myeloma - has not started therapy yet as she was recovering from recent hip fx repair 4. Pathologic hip fx s/p ORIF - stephanie still in place, appears to be healing well Dispo: requires continued inpatient stay, dc back to [facility] [place] sometime early next week likely for continued rehab]
[2017-11-20] MEDS: Enoxaparin(*) 40 MG/0.4 ML SYR SUBCUT SCH (17:32)
--- NOTE | 2017-11-20 18:32 | RAD ---
HISTORY: increased respiratory rate COMPARISONS: November 18, 2017 VIEWS: 1: frontal portable view of the chest at 6:13 PM FINDINGS: LINES AND TUBES: None. CARDIOMEDIASTINAL SILHOUETTE: The cardiomediastinal silhouette is normal for portable technique. PLEURA: There is stable pleural based masses bilaterally. LUNG PARENCHYMA: There is a diffuse reticular pattern with indistinct pulmonary vessels. There is patchy alveolar opacification of the right lung base. ABDOMEN: The upper abdomen is clear. There is no subphrenic gas. BONES AND SOFT TISSUES: No bone or soft tissue abnormalities are noted. IMPRESSION: 1. PULMONARY INTERSTITIAL EDEMA. 2. PATCHY AIRSPACE DISEASE OF THE RIGHT LUNG BASE. 3. STABLE PLEURAL-BASED MASSES.
[2017-11-20] MEDS ORDERED: methylPREDNISolone 125 MG* 2 ML VIAL IV ONE (19:44)
[2017-11-20] MEDS ORDERED: Furosemide IV* 10 MG/ML 2 ML VIAL (20 MG) IV ONE ×2 (19:44→20:00)
[2017-11-20] MEDS ORDERED: Morphine INJ* 2 MG/ML 1 ML SYRINGE (TWO MG - NEW SYRINGE VERSION) IV ONE (19:45)
[2017-11-20] MEDS: Levalbuterol 1.25MG/0.5ML NEB INH SCH ×2 (19:47→22:45)
[2017-11-20] MEDS ORDERED: LORazepam INJ* 2 MG/ML 1 ML VIAL ONE (19:48)
--- NOTE | 2017-11-20 19:50 | CONSULT ---
Consult Consult: Reason for consult: SOB, tachypnea Mrs Neel Nolasco is a 67YO female unfortunately recently diagnosed with late- stage multiple myeloma readmitted for neutropenic fever 2nd RLL pneumonia. She has had increased SOB today for which albuterol and lorazepam have been given with limited, temporary relief. Upon my evaluation she can speak in sentences, but does have increased SOB associated. She appears mildly anxious, but denies chest pain. Recent ABG showed acute respiratory alkalosis and mild hypoxia. Vitals are reasonably stable. Lungs have moderate inspiratory and expiratory wheeze along with fine cellophane crackles in B bases. Aeration is fair. CV is tacycardic 120s, normal S1S2. Abdomen is SNTND. I&Os show >3L positive. Assessment: plan volume overload : 40mg IV furosemide : 2mg IV morphine : strict I&Os : daily weights asthma exacerbation : albuterol neb Q2H PRN : albuterol/ipratropium Q6H routine : mometasone/formotorol : IV methylprednisolone : supplemental oxygen mild, reactive anxiety : should respond well to the above morphine advanced stage MM : management per oncology service
[2017-11-20] MEDS ORDERED: Furosemide IV* 10 MG/ML 10 ML VIAL (100 MG) IV ONE (20:00)
[2017-11-20] MEDS ORDERED: Morphine INJ* 2 MG/ML 1 ML SYRINGE (TWO MG - NEW SYRINGE VERSION) IV PRN (20:28)
[2017-11-20] MEDS: Lidocaine Patch REMOVE* 1 NOTE MISC PATCH OFF SCH (20:41)
[2017-11-21] MEDS: Levalbuterol 1.25MG/0.5ML NEB INH SCH ×4 (02:58→19:16)
[2017-11-21] MEDS: Mometasone/Formoter 200/5 MDI INH SCH ×2 (07:16→19:17)
[2017-11-21] MEDS: Lidocaine PATCH 5%* 1 PATCH TRANSDERM SCH (09:37)
[2017-11-21] MEDS: methylPREDNISolone SOD 40 MG* 1 ML VIAL IV SCH ×2 (09:37→22:57)
[2017-11-21] MEDS: Montelukast Sodium TAB* 10 MG PO SCH (09:38)
--- NOTE | 2017-11-21 09:51 | PN ---
Progress Note - Progress Note Date of Service: 11/21/17 SOAP: Subjective: [Better overnight. Received Lasix, solumedrol and morphine ~8p and she was able to rest better. Still has a productive cough. Less dyspnea. No recurrent fever.] Objective: [ Laboratory Results - last 24 hr 11/20/17 18:03 ABG pH 7.47 H ABG pCO2 25 L ABG pO2 71 L ABG HCO3 21.4 ABG O2 Saturation 97.2 ABG Base Excess -4.5 L Albuterol (Ventolin Hfa Inhaler*) 2 puff INH Q6H PRN PRN Reason: SHORTNESS OF BREATH Last Admin: 11/20/17 19:47 Dose: 2 puff Albuterol/Ipratropium (Duoneb (Albuterol 2.5 Mg/Ipratropium 0.5 Mg)) 1 neb INH Q4H PRN PRN Reason: SOB/WHEEZING Last Admin: 11/20/17 17:43 Dose: 1 neb Enoxaparin Sodium (Lovenox(*)) 40 mg SUBCUT Q24H [facility] Last Admin: 11/20/17 17:32 Dose: 40 mg Cefepime HCl 2 gm/ Dextrose 100 mls @ 200 mls/hr IVPB Q8H [facility] Last Admin: 11/21/17 07:23 Dose: 200 mls/hr Levalbuterol HCl (Xopenex 1.25 Mg/0.5 Ml Neb.Michelle*) 1.25 mg INH Q4H [facility] Last Admin: 11/21/17 07:16 Dose: 1.25 mg Lidocaine (Lidoderm 5% Patch*) 1 patch TRANSDERM DAILY [facility] Last Admin: 11/21/17 09:37 Dose: 1 patch Lorazepam (Ativan Tab(*)) 0.5 mg PO Q2H PRN PRN Reason: ANXIETY Last Admin: 11/20/17 18:17 Dose: 0.5 mg Methylprednisolone Sodium Succinate (Solu-Medrol 40 Mg) 40 mg IV Q12H [facility] Last Admin: 11/21/17 09:37 Dose: 40 mg Mometasone Furoate/Formoterol Fumar (Dulera 200/5 Mdi*) 2 puff INH BID [facility]; Protocol Last Admin: 11/21/17 07:16 Dose: 2 puff Montelukast Sodium (Singulair Tab*) 10 mg PO DAILY [facility] Last Admin: 11/21/17 09:38 Dose: 10 mg Morphine Sulfate (Morphine Inj ((Syringe))*) 2 mg IV Q2H PRN PRN Reason: dyspnea/pain Pharmacy Profile Note (Lidocaine Patch Remove*) 1 note PATCH OFF 2100 [facility] Last Admin: 11/20/17 20:41 Dose: 1 note Tramadol HCl (Ultram*) 50 mg PO Q4HR PRN PRN Reason: PAIN Last Admin: 11/19/17 20:21 Dose: 50 mg Vital Signs: Temp Pulse Resp BP Pulse Ox 98.8 F 101 22 135/74 100 11/21/17 04:57 11/21/17 07:20 11/21/17 07:20 11/21/17 04:57 11/21/17 07:20 Exam: Gen: Very pleasant and mildly ill appearing 67 yo female in NAD HEENT: MMM CV: RRR, no m/r/g Resp: diminshed breath sounds in RLL, few crackles, some wheezing, improved Abd: soft, nonTTP MS: healing surgical scar over R hip with stephanie in place ] Assessment: [67 yo female with multiple myeloma and associated pancytopenia admitted with fever and cough with new infiltrate on CXR. Urine cx now growing >100K EColi as well. Initial concern for neutropenia, but upon pathologist review, results are more consistent with initial automatic diff.] Plan: [1. PNA - increased WOB yesterday now improved with Lasix and corticosteroids - cover for health care acquired pathogens given recent hospitalizations and SNF stay - cont Cefepime - cont IV corticosteroids - no hypoxia, fevers improved - DuoNebs prn - use Dulera as substitute for usual Symbicort 2. UTI - EColi, sensitive to Cefepime - no urinary symptoms - dc [facility] today 3. Multiple myeloma - has not started therapy yet as she was recovering from recent hip fx repair 4. Pathologic hip fx s/p ORIF - stephanie still in place, appears to be healing well Dispo: requires continued inpatient stay, dc back to [facility] sometime early next week likely for continued rehab]
[2017-11-21 10:13] LABS: Hematocrit 25 % (35-47); Hemoglobin 8.8 g/dl (12.0-16.0); Mean Corpuscular HGB Conc 35 g/dl (31-36); Mean Corpuscular Hemoglobin 31 pg (27-31); Mean Corpuscular Volume 87 fL (80-97); Mean Platelet Volume 7.2 um3 (7.4-10.4); Platelet Count 72 10^3/ul (150-450); Red Blood Count 2.87 10^6/ul (4.00-5.40); Red Cell Distribution Width 16 % (10.5-15); White Blood Count 6.6 10^3/ul (3.5-10.8)
[2017-11-21] MEDS: LORazepam TAB(*) 0.5 MG PO PRN (10:27)
[2017-11-21 10:28] LABS: EGFR Non-African American 103.4 (>60)
[2017-11-21 10:39] LABS: ABS Basophils 0.1 10^3/ul (0-0.2); ABS Eosinophils 0 10^3/ul (0-0.6); ABS Lymphocytes 0.7 10^3/ul (1.0-4.8); ABS Monocytes 0.4 10^3/ul (0-0.8); ABS Neutrophils 5.4 10^3/ul (1.5-7.7)
[2017-11-21 10:43] LABS: ABS Basophils 0 10^3/ul (0-0.2); ABS Neutrophils 3.9 10^3/ul (1.5-7.7); Monocytes % 9 % (0-7); Schistocytes 1+
[2017-11-21] MEDS: Potassium Chlor TAB* 20 MEQ TAB.ER PO SCH ×3 (11:34→22:57)
[2017-11-21] MEDS: Enoxaparin(*) 40 MG/0.4 ML SYR SUBCUT SCH (16:55)
[2017-11-21] MEDS: traMADol TAB* 50 MG PO PRN (22:57)
[2017-11-21] MEDS: Lidocaine Patch REMOVE* 1 NOTE MISC PATCH OFF SCH (22:58)
[2017-11-21] MEDS: Albuterol HFA INHALER* 8 gm MDI INH PRN (23:24)
[2017-11-22] MEDS: Levalbuterol 1.25MG/0.5ML NEB INH SCH ×4 (01:14→19:21)
[2017-11-22] MEDS: LORazepam TAB(*) 0.5 MG PO PRN ×2 (01:34→21:23)
[2017-11-22 05:55] LABS: Hematocrit 24 % (35-47); Hemoglobin 8.3 g/dl (12.0-16.0); Mean Corpuscular HGB Conc 35 g/dl (31-36); Mean Corpuscular Hemoglobin 31 pg (27-31); Mean Corpuscular Volume 87 fL (80-97); Mean Platelet Volume 6.9 um3 (7.4-10.4); Platelet Count 61 10^3/ul (150-450); Red Blood Count 2.69 10^6/ul (4.00-5.40); Red Cell Distribution Width 16 % (10.5-15); White Blood Count 6.4 10^3/ul (3.5-10.8)
[2017-11-22 06:04] LABS: EGFR Non-African American 125.6 (>60)
[2017-11-22 06:24] LABS: ABS Basophils 0.1 10^3/ul (0-0.2); ABS Eosinophils 0 10^3/ul (0-0.6); ABS Lymphocytes 0.5 10^3/ul (1.0-4.8); ABS Monocytes 0.6 10^3/ul (0-0.8); ABS Neutrophils 5.2 10^3/ul (1.5-7.7); ABS Nucleated RBC 0.1 10^3/ul
[2017-11-22] MEDS: Potassium Chlor TAB* 20 MEQ TAB.ER PO SCH ×2 (08:57→20:57)
[2017-11-22] MEDS: Lidocaine PATCH 5%* 1 PATCH TRANSDERM SCH (08:57)
[2017-11-22] MEDS: traMADol TAB* 50 MG PO PRN ×2 (08:57→21:19)
[2017-11-22] MEDS: Montelukast Sodium TAB* 10 MG PO SCH (08:57)
[2017-11-22] MEDS: methylPREDNISolone SOD 40 MG* 1 ML VIAL IV SCH (08:57)
[2017-11-22] MEDS: Mometasone/Formoter 200/5 MDI INH SCH ×2 (09:01→19:22)
[2017-11-22] MEDS: NS 0.9% 50 ML* 50 ML with Cefepime(*) 2 GM IVPB SCH ×4 (15:51→23:59)
[2017-11-22] MEDS: Enoxaparin(*) 40 MG/0.4 ML SYR SUBCUT SCH (17:07)
[2017-11-22] MEDS: Lidocaine Patch REMOVE* 1 NOTE MISC PATCH OFF SCH (20:57)
[2017-11-23] MEDS: Levalbuterol 1.25MG/0.5ML NEB INH SCH ×2 (01:16→08:08)
[2017-11-23] MEDS: Mometasone/Formoter 200/5 MDI INH SCH ×2 (08:08→19:56)
[2017-11-23] MEDS: NS 0.9% 50 ML* 50 ML with Cefepime(*) 2 GM IVPB SCH ×2 (09:32)
[2017-11-23] MEDS: Lidocaine PATCH 5%* 1 PATCH TRANSDERM SCH (09:33)
[2017-11-23] MEDS: traMADol TAB* 50 MG PO PRN (09:33)
[2017-11-23] MEDS: methylPREDNISolone SOD 40 MG* 1 ML VIAL IV SCH (09:33)
[2017-11-23] MEDS: Montelukast Sodium TAB* 10 MG PO SCH (09:34)
[2017-11-23] MEDS ORDERED: Levalbuterol 1.25MG/0.5ML NEB INH PRN (10:44)
[2017-11-23] MEDS: Cefepime 2 GM in Dextrose(*) 2 GM/50 ML BAG IV SCH ×2 (16:06→23:49)
[2017-11-23] MEDS: Enoxaparin(*) 40 MG/0.4 ML SYR SUBCUT SCH ×2 (17:10→17:52)
--- NOTE | 2017-11-23 17:23 | PN ---
Progress Note - Progress Note Date of Service: 11/23/17 SOAP: Subjective: [Slowly improving. Dyspneic walking to bathroom. No hypoxia. Cough improving] Objective: [ Albuterol (Ventolin Hfa Inhaler*) 2 puff INH Q6H PRN PRN Reason: SHORTNESS OF BREATH Last Admin: 11/21/17 23:24 Dose: 2 puff Albuterol/Ipratropium (Duoneb (Albuterol 2.5 Mg/Ipratropium 0.5 Mg)) 1 neb INH Q4H PRN PRN Reason: SOB/WHEEZING Last Admin: 11/20/17 17:43 Dose: 1 neb Enoxaparin Sodium (Lovenox(*)) 40 mg SUBCUT Q24H [facility] Last Admin: 11/23/17 17:10 Dose: 40 mg Cefepime HCl (Maxipime 2 Gm In Dextrose Duplex (*)) 2 gm in 50 mls @ 100 mls/ hr IV 0730,1530,2330 [facility] Last Admin: 11/23/17 16:06 Dose: 100 mls/hr Levalbuterol HCl (Xopenex 1.25 Mg/0.5 Ml Neb.Michelle*) 1.25 mg INH Q6H PRN PRN Reason: SOB/WHEEZING Last Admin: 11/23/17 16:22 Dose: 1.25 mg Lidocaine (Lidoderm 5% Patch*) 1 patch TRANSDERM DAILY [facility] Last Admin: 11/23/17 09:33 Dose: 1 patch Lorazepam (Ativan Tab(*)) 0.5 mg PO Q2H PRN PRN Reason: ANXIETY Last Admin: 11/22/17 21:23 Dose: 0.5 mg Methylprednisolone Sodium Succinate (Solu-Medrol 40 Mg) 40 mg IV DAILY [facility] Last Admin: 11/23/17 09:33 Dose: 40 mg Mometasone Furoate/Formoterol Fumar (Dulera 200/5 Mdi*) 2 puff INH BID [facility]; Protocol Last Admin: 11/23/17 08:08 Dose: 2 puff Montelukast Sodium (Singulair Tab*) 10 mg PO DAILY [facility] Last Admin: 11/23/17 09:34 Dose: 10 mg Morphine Sulfate (Morphine Inj ((Syringe))*) 2 mg IV Q2H PRN PRN Reason: dyspnea/pain Pharmacy Profile Note (Lidocaine Patch Remove*) 1 note PATCH OFF 2100 [facility] Last Admin: 11/22/17 20:57 Dose: 1 note Tramadol HCl (Ultram*) 50 mg PO Q4HR PRN PRN Reason: PAIN Last Admin: 11/23/17 09:33 Dose: 50 mg Vital Signs: Temp Pulse Resp BP Pulse Ox 98.7 F 114 14 125/80 100 11/23/17 15:25 11/23/17 16:28 11/23/17 16:28 11/23/17 15:25 11/23/17 16:28 Exam: Gen: Very pleasant and mildly ill appearing 67 yo female in NAD HEENT: MMM CV: RRR, no m/r/g Resp: diminshed breath sounds in RLL, few crackles, some wheezing, improved Abd: soft, nonTTP MS: healing surgical scar over R hip with stephanie in place ] Assessment: [67 yo female with multiple myeloma and associated pancytopenia admitted with fever and cough with new infiltrate on CXR. Urine cx now growing >100K EColi as well. Initial concern for neutropenia, but upon pathologist review, results are more consistent with initial automatic diff.] Plan: [1. PNA - improving - cover for health care acquired pathogens given recent hospitalizations and SNF stay - cont Cefepime - cont IV corticosteroids, start to taper - no hypoxia, fevers improved - DuoNebs prn - use Dulera as substitute for usual Symbicort 2. UTI - EColi, sensitive to Cefepime - no urinary symptoms - dc [facility] today 3. Multiple myeloma - has not started therapy yet as she was recovering from recent hip fx repair - received phone call from [facility] radiation oncology, Dr Walter to clarify radiation plan, have been unable to connect 4. Pathologic hip fx s/p ORIF - stephanie still in place, appears to be healing well - scheduled follow up with surgeon Dr Leigh Ann Monroe 11/25, will call office to notify her of admission [phone] Dispo: requires continued inpatient stay, dc back to [facility] sometime later this week likely for continued rehab]]
[2017-11-23] MEDS: Lidocaine Patch REMOVE* 1 NOTE MISC PATCH OFF SCH (20:05)
[2017-11-24] MEDS: Cefepime 2 GM in Dextrose(*) 2 GM/50 ML BAG IV SCH ×3 (07:26→23:27)
[2017-11-24] MEDS: Albuterol/Ipratropium NEB.SOL* Albuterol 2.5 MG/Ipratropium 0.5 MG 3 ML INH PRN (08:11)
[2017-11-24] MEDS: Mometasone/Formoter 200/5 MDI INH SCH ×2 (08:11→20:11)
[2017-11-24] MEDS: methylPREDNISolone SOD 40 MG* 1 ML VIAL IV SCH (09:18)
[2017-11-24] MEDS: Lidocaine PATCH 5%* 1 PATCH TRANSDERM SCH (09:18)
[2017-11-24] MEDS: Montelukast Sodium TAB* 10 MG PO SCH (09:18)
[2017-11-24 10:26] LABS: EGFR Non-African American 114.7 (>60)
[2017-11-24 11:01] LABS: ABS Basophils 0.1 10^3/ul (0-0.2); ABS Eosinophils 0 10^3/ul (0-0.6); ABS Lymphocytes 0.9 10^3/ul (1.0-4.8); ABS Monocytes 0.3 10^3/ul (0-0.8); ABS Neutrophils 6.1 10^3/ul (1.5-7.7); ABS Nucleated RBC 0 10^3/ul; Eosinophil % 0.3 % (0-6); Hematocrit 26 % (35-47); Hemoglobin 9.4 g/dl (12.0-16.0); Lymphocyte % 11.9 % (25-47); Mean Corpuscular HGB Conc 36 g/dl (31-36); Mean Corpuscular Hemoglobin 32 pg (27-31); Mean Corpuscular Volume 87 fL (80-97); Mean Platelet Volume 7.1 um3 (7.4-10.4); Nucleated Red Blood Cells % 0.2; Platelet Count 61 10^3/ul (150-450); Red Blood Count 2.97 10^6/ul (4.00-5.40); Red Cell Distribution Width 15 % (10.5-15); White Blood Count 7.4 10^3/ul (3.5-10.8)
--- NOTE | 2017-11-24 11:35 | PN ---
Progress Note - Progress Note Date of Service: 11/24/17 SOAP: Subjective: [Feeling much better. Cough/dyspnea improved. Tachycardia improved. Having some generalized pain, likely attributable to her myeloma and previously responsive to Tramadol.] Objective: [ Laboratory Results - last 24 hr 11/24/17 11/24/17 09:59 09:59 WBC 7.4 RBC 2.97 L Hgb 9.4 L Hct 26 L MCV 87 MCH 32 H MCHC 36 RDW 15 Plt Count 61 L MPV 7.1 L Neut % (Auto) 82.3 Lymph % (Auto) 11.9 L Zavala % (Auto) 4.3 Eos % (Auto) 0.3 Baso % (Auto) 1.2 Absolute Neuts (auto) 6.1 Absolute Lymphs (auto) 0.9 L Absolute Monos (auto) 0.3 Absolute Eos (auto) 0 Absolute Basos (auto) 0.1 Absolute Nucleated RBC 0 Nucleated RBC % 0.2 Sodium 133 L Potassium 4.1 Chloride 98 L Carbon Dioxide 28 Anion Gap 7 BUN 19 Creatinine 0.53 Est GFR ( Amer) 138.8 Est GFR (Non-Af Amer) 114.7 BUN/Creatinine Ratio 35.8 H Glucose 183 H Calcium 9.5 Total Bilirubin 0.90 AST 22 ALT 18 Alkaline Phosphatase 155 H Total Protein 6.0 L Albumin 3.6 Globulin 2.4 Albumin/Globulin Ratio 1.5 Albuterol (Ventolin Hfa Inhaler*) 2 puff INH Q6H PRN PRN Reason: SHORTNESS OF BREATH Last Admin: 11/21/17 23:24 Dose: 2 puff Albuterol/Ipratropium (Duoneb (Albuterol 2.5 Mg/Ipratropium 0.5 Mg)) 1 neb INH Q4H PRN PRN Reason: SOB/WHEEZING Last Admin: 11/24/17 08:11 Dose: 1 neb Enoxaparin Sodium (Lovenox(*)) 40 mg SUBCUT Q24H [facility] Last Admin: 11/23/17 17:52 Dose: Not Given Cefepime HCl (Maxipime 2 Gm In Dextrose Duplex (*)) 2 gm in 50 mls @ 100 mls/ hr IV 0730,1530,2330 [facility] Last Admin: 11/24/17 07:26 Dose: 100 mls/hr Levalbuterol HCl (Xopenex 1.25 Mg/0.5 Ml Neb.Michelle*) 1.25 mg INH Q6H PRN PRN Reason: SOB/WHEEZING Last Admin: 11/23/17 16:22 Dose: 1.25 mg Lidocaine (Lidoderm 5% Patch*) 1 patch TRANSDERM DAILY [facility] Last Admin: 11/24/17 09:18 Dose: 1 patch Lorazepam (Ativan Tab(*)) 0.5 mg PO Q2H PRN PRN Reason: ANXIETY Last Admin: 11/22/17 21:23 Dose: 0.5 mg Methylprednisolone Sodium Succinate (Solu-Medrol 40 Mg) 40 mg IV DAILY [facility] Last Admin: 11/24/17 09:18 Dose: 40 mg Mometasone Furoate/Formoterol Fumar (Dulera 200/5 Mdi*) 2 puff INH BID [facility]; Protocol Last Admin: 11/24/17 08:11 Dose: 2 puff Montelukast Sodium (Singulair Tab*) 10 mg PO DAILY [facility] Last Admin: 11/24/17 09:18 Dose: 10 mg Morphine Sulfate (Morphine Inj ((Syringe))*) 2 mg IV Q2H PRN PRN Reason: dyspnea/pain Pharmacy Profile Note (Lidocaine Patch Remove*) 1 note PATCH OFF 2100 [facility] Last Admin: 11/23/17 20:05 Dose: 1 note Tramadol HCl (Ultram*) 50 mg PO Q4HR PRN PRN Reason: PAIN Last Admin: 11/23/17 09:33 Dose: 50 mg Vital Signs: Temp Pulse Resp BP Pulse Ox 98.7 F 109 16 124/79 96 11/24/17 07:28 11/24/17 08:15 11/24/17 08:15 11/24/17 07:28 11/24/17 08:15 Exam: Gen: Very pleasant and mildly ill appearing 67 yo female in NAD HEENT: MMM CV: RRR, no m/r/g Resp: lungs are clear to auscultation, no w/c/r Abd: soft, nonTTP MS: healing surgical scar over R hip and R lateral knee with stephanie in place ] Assessment: [67 yo female with multiple myeloma and associated pancytopenia admitted with fever and cough with new infiltrate on CXR. Urine cx grew >100K EColi as well. Initial concern for neutropenia, but upon pathologist review, results are more consistent with initial automatic diff.] Plan: [1. PNA - improving - cover for health care acquired pathogens given recent hospitalizations and SNF stay - cont Cefepime - taper to oral steroids - DuoNebs prn - use Dulera as substitute for usual Symbicort 2. UTI - EColi, sensitive to Cefepime - no urinary symptoms 3. Multiple myeloma - has not started therapy yet as she was recovering from recent hip fx repair - received phone call from [facility] radiation oncology, Dr Walter to clarify radiation plan, have been unable to connect 4. Pathologic hip fx s/p ORIF - stephanie still in place, appears to be healing well - scheduled follow up with surgeon Dr Leigh Ann Monroe 11/25, will call office to notify her of admission [phone] Dispo: anticipate dc back to [facility] tomorrow]
[2017-11-24] MEDS: traMADol TAB* 50 MG PO PRN ×3 (12:31→21:30)
[2017-11-24] MEDS: Enoxaparin(*) 40 MG/0.4 ML SYR SUBCUT SCH (17:27)
[2017-11-24] MEDS: Albuterol HFA INHALER* 8 gm MDI INH PRN (20:07)
[2017-11-24] MEDS: Lidocaine Patch REMOVE* 1 NOTE MISC PATCH OFF SCH (20:57)
[2017-11-25] MEDS: Mometasone/Formoter 200/5 MDI INH SCH (07:05)
[2017-11-25] MEDS: Montelukast Sodium TAB* 10 MG PO SCH (08:10)
[2017-11-25] MEDS: Lidocaine PATCH 5%* 1 PATCH TRANSDERM SCH (08:10)
[2017-11-25] MEDS: Cefepime 2 GM in Dextrose(*) 2 GM/50 ML BAG IV SCH (08:10)
[2017-11-25] MEDS ORDERED: predniSONE TAB* 20 MG PO SCH (09:00)
[2017-11-25] MEDS: traMADol TAB* 50 MG PO PRN ×2 (09:08→13:45)
--- NOTE | 2017-11-25 10:16 | DS ---
CC: Dr. Bautista; Dr. Ermias Chong; Dr. Walter, [facility]; Dr. Leigh Ann Monroe, [facility] * DATE OF ADMISSION: 11/18/2017. DATE OF DISCHARGE: 11/25/2017. PRIMARY CARE PHYSICIAN: Not listed. PRIMARY ONCOLOGIST: Dr. Jose Bautista. RADIATION ONCOLOGIST: Dr. Ermias Chong. ORTHOPEDIC SURGEON: Dr. Leigh Ann Monroe, [facility]. OUTSIDE RADIATION ONCOLOGIST: Dr. Walter at [facility]. ATTENDING PHYSICIAN: Dr. Aida Ferro * (dictated by NUHA Duran). DISCHARGING PROVIDER: NUHA Duran. PRIMARY DISCHARGE DIAGNOSES: 1. Sepsis secondary to pneumonia and urinary tract infection. 2. Healthcare associated pneumonia. 3. Urinary tract infection with nearly pansensitive E. coli. 4. Asthma with acute exacerbation associated with pneumonia. SECONDARY DISCHARGE DIAGNOSES: Multiple myeloma - naive to medical therapy, status post prophylactic nailing of unstable proximal right femur lesion, pending palliative radiation to the region. Date of surgery 11/03/[address] Leigh Ann Monroe at [facility]. DISCHARGE MEDICATIONS: 1. Acetaminophen 1,000 mg p.o. three times daily as needed for pain. 2. Albuterol two puffs inhaled q.6 hours as needed for shortness of breath. 3. Symbicort two puffs inhaled twice daily. 4. Lidocaine patch one patch applied transdermally q.24 hours. 5. Ativan 0.5 mg p.o. at bedtime as needed. 6. Singulair 10 mg p.o. daily. 7. Crestor 5 mg p.o. daily. 8. Ultram 50 mg p.o. q.6 hours as needed for pain. 9. Levaquin 750 mg p.o. daily times 5 days. 10. Prednisone in a tapering dose at 60 mg p.o. daily times 3 days, followed by 40 mg p.o. daily times 3 days, followed by 20 mg p.o. daily times 3 days, followed by 10 mg p.o. daily times 3 days. Medication changes: 1. Levaquin times 5 days. 2. Prednisone in a tapering dose as noted above. HOSPITAL IMAGIN. Chest x-ray, 11/18/2017: Suspect developing right basal infiltrate, no additional interval changes. 2. Chest x-ray, 11/20/2017: Pulmonary interstitial edema withpatchy airspace disease of the right lung base,stable pleural-based masses. HOSPITAL COURSE: This is a 67-year-old female with a relatively recent diagnosis of multiple myeloma who is hospitalized here at [facility] in October with anemia and hypercalcemia with diffuse lytic lesions noted in an unstable right proximal femur lesion for which she was transferred to the [facility] and had prophylactic nail placed by Dr. Leigh Ann Monroe on 11/03/2017. During that hospitalization, the patient underwent palliative radiation to T11 through L2 due to impending cord compression in that region. Recommendation had been made for palliative radiation to the right hip and femur post stabilization. The patient was transferred to [facility] for subacute rehab when she developed a cough and fever and was subsequently transferred to the emergency department for further evaluation. On initial presentation, the patient was febrile with a temperature of 102.2 with a pulse of 123 beats per minute, respiratory rate of 22, oxygenating well with saturations at 98 percent and a blood pressure of 107/ 72. Initial labs showed a total white blood cell count of 2700 and on auto differential neutrophil count of 1600. Subsequent manual differential listed her neutrophils at 800 which was later corrected by the pathologist. Her hemoglobin was 6.8 gm/dL and a platelet count of 88,000. Her chemistries were remarkable only for mild elevated alk phos. She had a significantly elevated procalcitonin to 3.5. Initial chest x- ray showed a right basilar infiltrate and the patient was subsequently transfused 2U PRBCs and treated for a healthcare associated pneumonia due to recent hospitalization and rehab stay at [facility] with Cefepime. Urine culture eventually grew greater than 100,000 colonies of E. coli that was also sensitive to Cefepime. The patient initially improved in regards to her fevers and her cough and dyspnea on antibiotics alone, but on approximately day three of her hospitalization, she had increasing tachycardia and dyspnea. Repeat chest x- ray showed a picture of some interstitial edema and the patient became increasingly uncomfortable. She also has a history of asthma and was noted to be wheezing on exam which is also a new findings. The patient was diuresed with IV Lasix and started on IV corticosteroids and give Morphine for additional relief as well. The patient's complaints of dyspnea and her tachycardia improved over the following days and her steroids were tapered to oral Prednisone. Prior to discharge, plan of care was discussed with her orthopedic surgeon, Dr. Monroe at [facility], as well as her consulting radiation oncologist at [facility], Dr. Walter. The patient's stephanie were still in place during this hospitalization and Dr. Monroe, who had plans to see the patient in her office the day of discharge, recommended that the stephanie could be removed prior to discharge and as long as the wound appeared to be healing appropriately , radiation could start to the right femur. Clarified with Dr. Walter that no radiation had been done to the right hip during her hospital stay at [facility] and their recommendations was to irradiate the entire right femur. These recommendations were discussed with Dr. Ermias Chong and he will see the patient prior to discharge today, 11/25/2017, with plans to initiate palliative radiation some time in the near future. DISPOSITION AND FOLLOW-UP PLAN: The patient is being discharged back to [facility] with an initial five days of Levaquin and the steroid taper as listed above. She will continue on her usual Symbicort and as needed Albuterol. Palliative radiation will start on her right hip and she will follow-up with Medical Oncology next week for hospital follow-up and chemotherapy teaching with plans to start medical therapy shortly thereafter. NUHA DURAN [id number]/[facility] #: [id number] [facility]
--- NOTE | 2017-11-25 14:27 | RAD ---
INDICATION: CT for radiation therapy mapping COMPARISON: CT abdomen pelvis October 29, 2017 TECHNIQUE: Noncontrast, nondiagnostic, axial source images of the pelvis were acquired. FINDINGS: There is extensive lytic change throughout the visualized spine, bony pelvis, and proximal femurs. There is been interval placement of a right femoral pia and nail. Please refer also to recent CT report dated October 29, 2017. IMPRESSION: A SIM study was performed for radiation planning purposes.
[2017-11-25 15:34] VITALS: BP 109/60
--- NOTE | 2017-11-26 12:01 | RADMED ---
CC: Dr. Bautista; [facility]; Ermias Chong MD RADIATION ONCOLOGY INPATIENT CONSULTATION NOTE: DATE OF SERVICE: 11/25/17 DIAGNOSIS: Multiple myeloma. REFERRING PHYSICIAN: NUHA Donald. HISTORY OF PRESENT ILLNESS: Estrellita Nolasco is a 67-year-old woman who presented with back and hip pain, brought to medical attention which prompted radiographic evaluation including CT scan of the chest, abdomen and pelvis from 10/29/17 showing extensive bony involvement of multiple destructive lytic lesions with extensive disease at the right femoral neck with cortical destruction as well as clinically concerning involvement of the sacrum and SI joints and particularly the spine at multiple levels, particularly T11 where there is cortical destruction and epidural extension suggested. She was transferred to [place] and on 11/03/17, underwent intramedullary nail placement in the right femur for stabilization. She also received palliative radiation therapy to the spine, field encompassing T10 to L2 vertebral bodies 2000 cGy in 5 fractions, completed 11/12/17. She was discharged and has been at [facility] in rehab, now admitted to the hospital for inpatient management of pneumonia. She was recommended to consider postoperative radiation therapy to the hip and is referred to see me for coordination of that treatment. Bone marrow biopsy from 11/05/17, confirms plasma cell neoplasm leading to a diagnosis of multiple myeloma. PAST MEDICAL HISTORY: Multiple myeloma as in the history of present illness, history of asthma, bipolar disorder. MEDICATIONS: As per the inpatient record. ALLERGIES: ASPIRIN, CODEINE. FAMILY HISTORY: No history of malignancy reported. SOCIAL HISTORY: She is a former smoker having quit in the distant past, and drinks alcohol occasionally. REVIEW OF SYSTEMS: As in the history of present illness, otherwise complete review of systems is obtained from the patient. PHYSICAL EXAMINATION: Vital Signs: Temperature 97.4, pulse rate 107, respiratory rate 20, oxygen saturation 100% on room air, blood pressure 109/60. General: She is awake, alert, oriented, in no acute distress. Normocephalic, atraumatic. Sclera anicteric. Neck is supple. Full range of motion. Midline trachea. No mass palpable on the neck or thyroid. Lungs with symmetric air entry bilaterally. Cardiovascular: S1, S2 , regular. Abdomen: Soft, nontender. No mass. No organomegaly. Musculoskeletal: Tenderness to palpation over the bilateral SI joints. PATHOLOGY AND RADIOLOGY: Reviewed as in the history of present illness. ASSESSMENT AND PLAN: Estrellita Nolasco is a 67-year-old woman with recently diagnosed multiple myeloma. I did review her history as well as pathological and radiographic findings and discussed at some length with the patient, as she is already well informed and familiar. I did review with her, considerations for palliative radiation therapy including postoperative treatment to the right femur where she underwent placement of an intramedullary pia for fracture prophylaxis and potentially for treatment around the sacrum and bilateral SI joints where her main source of pain originates. With regards to palliative radiation therapy for her situation, I explained the logistics and rationale for treatment, the risks, benefits, and alternatives as well as the acute and usp frequent and uncommon toxicities. I answered her questions to the best of my ability. She is inclined to proceed with palliative radiation therapy as discussed and did sign informed consent. She will undergo CT simulation today to facilitate treatment planning. For her situation, I have recommended 2000 centigray and 400 centigray per fraction. Tentative treatment start date, 11/29/17. Thank you for giving me the opportunity to participate in the care of this very pleasant patient. [id number]/[facility] #: [id number] MTDD
== END 2017-11-25 16:19 | DRG 871 ==
LOC: ED 15:03 → MEDTELE 17:50
PROVIDERS: ADMIT Internal Medicine Hematology & Oncology; ATTEND Internal Medicine Hematology & Oncology
PROC: 30233N1 Transfusion of Nonautologous Red Blood Cells into Peripheral Vein, Percutaneous Approach (ICD-10-PCS; principal; 2017-11-18)
DX: A41.9 Sepsis, unspecified organism (principal); J18.9 Pneumonia, unspecified organism; N39.0 Urinary tract infection, site not specified; J45.901 Unspecified asthma with (acute) exacerbation; C90.00 Multiple myeloma not having achieved remission; D61.818 Other pancytopenia; E87.3 Alkalosis; B96.20 Unspecified Escherichia coli [E. coli] as the cause of diseases classified elsewhere; F41.9 Anxiety disorder, unspecified; F31.9 Bipolar disorder, unspecified; D64.9 Anemia, unspecified; R50.81 Fever presenting with conditions classified elsewhere; E87.5 Hyperkalemia; H26.9 Unspecified cataract; E87.70 Fluid overload, unspecified; Z88.5 Allergy status to narcotic agent; Z88.8 Allergy status to other drugs, medicaments and biological substances; Z82.49 Family history of ischemic heart disease and other diseases of the circulatory system; Z83.3 Family history of diabetes mellitus; Z72.89 Other problems related to lifestyle
CPT/HCPCS: 1036F; 36415; 36600; 71045; 77014; 77290; 77307; 77334; 77370; 80053; 81003; 81015; 82550; 82803; 83605; 83735; 83880; 84145; 84484; 85025; 85027; 85060; 85384; 85610; 85652; 85730; 86140; 86850; 86900; 86901; 86922; 87040; 87070; 87077; 87086; 87186; 87205; 87641; 87899; 88184; 88185; 88187; 88188; 88189; 93005; 94640; 99223; 99232; 99233; 99239; 99284; A9270-GY; G8427; G8978-GP-CJ; G8979-GP-CI; J0692; J1650; J1940; J2060; J2270; J2920; J2930; J7512; P9040

== ENCOUNTER 2019-03-29 17:40 | Observation (INO) | payer MEDICARE, OTHER ==
[2019-03-29] MEDS ORDERED: NS 0.9% 1000 ML** 1,000 ML IV ONE (18:07)
--- NOTE | 2019-03-29 18:32 | ED ---
Medical Screening - HPI Summary HPI Summary: Per friends, patient with history of bipolar disorder and multiple myeloma followed by Dr. Bautista, complains of decreased by mouth intake, sleeping a lot, emotional lability, fatigue, weakness, lightheadedness 2 weeks. Patient was then with abduction weeks ago and states she has gone on a hunger strike". Patient alert and oriented, responding coherently and appropriately but highly emotional with tangential speech during history of present illness. Friends state patient has been calling suicide hotline multiple times over the past 2 weeks, the patient denies SI or HI. Patient denies any pain, fever, cough, sore throat, CP, SOB, N/V/D, abdominal pain, change in urine, change in BM. Friends state patient apartment is probably high with garbage, patient is not taking her medications, is not feeding herself, is not changing her clothes. Medical history is multiple myeloma diagnosed in 2018 with history of stem cell transplant followed by Dr. Bautista. History of depression, asthma and bipolar disorder. - History of Current Complaint Chief Complaint: EDPsychosocial Stated Complaint: NOT EATING/WEAKNESS PER PT Time Seen by Provider: 03/29/19 18:05 Onset/Duration: Started Days Ago Severity: moderate PMH/Surg Hx/FS Hx/Imm Hx Endocrine/Hematology History: Denies: Hx Anticoagulant Therapy, Hx Diabetes Cardiovascular History: Denies: Hx Hypertension Respiratory History: Reports: Hx Asthma Denies: Hx Pneumonia History: Denies: Hx Dialysis, Hx Renal Disease Sensory History: Reports: Hx Cataracts - developing, Hx Contacts or Glasses Denies: Hx Hearing Aid Opthamlomology History: Reports: Hx Cataracts - developing, Hx Contacts or Glasses EENT History: Denies: Hx Deafness Neurological History: Denies: Hx CVA Psychiatric History: Reports: Hx Anxiety, Hx Depression, Hx Bipolar Disorder - with a few hospitalizations - Cancer History Cancer Type, Location and Year: LYTIC LESIONS. MULTIPLE MYELOMA Hx Chemotherapy: No Hx Radiation Therapy: No - Surgical History Surgery Procedure, Year, and Place: fibroid removal 1991. right femur rodding 2018 Infectious Disease History: No Infectious Disease History: Denies: Traveled Outside the [place] in Last 30 Days - Family History Known Family History: Positive: Cardiac Disease, Hypertension, Diabetes - Social History Alcohol Use: Occasionally Substance Use Type: Reports: None Hx Tobacco Use: Yes - remote, mild Smoking Status (MU): Never Smoked Tobacco Review of Systems Constitutional: Negative Eyes: Negative ENT: Negative Cardiovascular: Negative Respiratory: Negative Gastrointestinal: Negative Genitourinary: Negative Musculoskeletal: Negative Skin: Negative Neurological: Negative Positive: Depressed All Other Systems Reviewed And Are Negative: Yes Physical Exam - Summary Physical Exam Summary: Neuro exam normal. RRR. Lung sounds clear to auscultation bilaterally. Abdomen soft nontender. No peripheral edema and lower extremities. Triage Information Reviewed: Yes Vital Signs On Initial Exam: Initial Vitals Temp Pulse Resp BP Pulse Ox 98.9 F 83 16 161/111 100 03/29/19 17:46 03/29/19 17:46 03/29/19 17:46 03/29/19 17:46 03/29/19 17:46 Vital Signs Reviewed: Yes Appearance: Positive: Well-Appearing Skin: Positive: Warm Head/Face: Positive: Normal Head/Face Inspection Eyes: Positive: Normal Neck: Positive: Supple Respiratory/Lung Sounds: Positive: Clear to Auscultation Cardiovascular: Positive: Normal Abdomen Description: Positive: Nontender Musculoskeletal: Positive: Normal Neurological: Positive: Normal Psychiatric: Positive: Normal AVPU Assessment: Alert - [place] Coma Scale Best Eye Response: 4 - Spontaneous Best Motor Response: 6 - Obeys Commands Best Verbal Response: 5 - Oriented Coma Scale Total: 15 Procedures - Sedation Patient Received Moderate/Deep Sedation with Procedure: No Diagnostics - Vital Signs Vital Signs Temp Pulse Resp BP Pulse Ox 03/29/19 17:46 98.9 F 83 16 161/111 100 - Laboratory Result Diagrams: 03/29/19 18:26 03/29/19 18:26 Lab Statement: Any lab studies that have been ordered have been reviewed, and results considered in the medical decision making process. Course/Dx - Course Course Of Treatment: Per friends, patient with history of bipolar disorder and multiple myeloma followed by Dr. Bautista, complains of decreased by mouth intake, sleeping a lot, emotional lability, fatigue, weakness, lightheadedness 2 weeks. Patient was then with abduction weeks ago and states she has gone on a hunger strike". Patient alert and oriented, responding coherently and appropriately but highly emotional with tangential speech during history of present illness. Friends state patient has been calling suicide hotline multiple times over the past 2 weeks, the patient denies SI or HI. Patient denies any pain, fever, cough, sore throat, CP, SOB, N/V/D, abdominal pain, change in urine, change in BM. Friends state patient apartment is probably high with garbage, patient is not taking her medications, is not feeding herself , is not changing her clothes. Medical history is multiple myeloma diagnosed in 2018 with history of stem cell transplant followed by Dr. Bautista. History of depression, asthma and bipolar disorder. Vital signs within normal limits. Labs unremarkable. EKG sinus rhythm, heart rate 73, normal axis. Mental health evaluation recommended discharge. This provider's opinion and nurse's opinion is that this patient is not safe to go home. Social admit to hospitalist. - Diagnoses Provider Diagnoses: Hospital admission due to social situation Discharge ED - Sign-Out/Discharge Documenting (check all that apply): Patient Departure - Discharge Plan Condition: Stable Disposition: ADMITTED TO [facility] - Billing Disposition and Condition Condition: STABLE Disposition: Admitted to [facility] - Attestation Statements Provider Attestation: I was available for consult. This patient was seen by the MAGAN. The patient was not presented to, seen by, or examined by me. Vahe Wolfe MD
[2019-03-29 18:34] LABS: ABS Basophils 0.1 10^3/ul (0-0.2); ABS Eosinophils 0.1 10^3/ul (0-0.6); ABS Lymphocytes 1.2 10^3/ul (1.0-4.8); ABS Monocytes 0.4 10^3/ul (0-0.8); ABS Neutrophils 2.2 10^3/ul (1.5-7.7); Eosinophil % 1.5 %; Hematocrit 40 % (35-47); Hemoglobin 13.4 g/dL (12.0-16.0); Lymphocyte % 30.9 %; Mean Corpuscular HGB Conc 33 g/dL (31-36); Mean Corpuscular Hemoglobin 31 pg (27-31); Mean Corpuscular Volume 93 fL (80-97); Mean Platelet Volume 6.4 fL (7.4-10.4); Nucleated Red Blood Cells % 0.2; Platelet Count 177 10^3/uL (150-450); Red Blood Count 4.35 10^6 /uL (3.70-4.87); Red Cell Distribution Width 14 % (10-15); White Blood Count 3.8 10^3/uL (3.5-10.8)
[2019-03-29 18:53] LABS: ALT 25 U/L (7-52); AST 17 U/L (13-39); Albumin 4.2 g/dL (3.2-5.2); Albumin/Globulin Ratio 1.9 (1-3); Alkaline Phosphatase 47 U/L (34-104); Anion Gap 5 mmol/L (2-11); BUN/Creatinine Ratio 12.5 (8-20); Blood Urea Nitrogen 11 mg/dL (6-24); C Reactive Protein < 1.00 mg/L (<8.01); CO2 Carbon Dioxide 26 mmol/L (22-32); Calcium 9.5 mg/dL (8.6-10.3); Chloride 104 mmol/L (101-111); EGFR African American 77.1 (>60); EGFR Non-African American 63.7 (>60); Globulin 2.2 g/dL (2-4); Glucose 95 mg/dL (70-100); Magnesium 1.8 mg/dL (1.9-2.7); Potassium 4.3 mmol/L (3.5-5.0); Sodium 135 mmol/L (135-145); Total Protein 6.4 g/dL (6.4-8.9); Troponin I 0.01 ng/mL (<0.03)
[2019-03-29 19:16] LABS: Acetaminophen < 15 mcg/mL; Alcohol < 10 mg/dL (<10); Salicylate < 2.50 mg/dL (<30)
[2019-03-29] MEDS ORDERED: Magnesium Sulfate 2 GM IV* 2 GM/50 ML BAG IVPB ONE (19:19)
[2019-03-29 19:32] LABS: TSH (Thyroid Stimulating Horm) 0.55 mcIU/mL (0.34-5.60)
[2019-03-29 21:32] LABS: Urine Appearance Clear; Urine Bilirubin Negative (Negative); Urine Blood Negative (Negative); Urine Color Straw; Urine Glucose Negative (Negative); Urine Ketones Negative (Negative); Urine Nitrite Negative (Negative); Urine Protein Negative (Negative); Urine Specific Gravity 1.005 (1.010-1.030); Urine Urobilinogen Negative (Negative)
[2019-03-29 21:44] LABS: Urine Benzodiazepine Screen None Detected (None Detect); Urine Opiates Screen None Detected (None Detect)
[2019-03-30] MEDS ORDERED: Acetaminophen TAB* 325 MG PO PRN (03:38)
[2019-03-30] MEDS ORDERED: Albuterol HFA INHALER* 8 gm MDI INH PRN (03:38)
[2019-03-30] MEDS: NS 0.9% 1000 ML** 1,000 ML IV SCH ×2 (05:43→18:56)
[2019-03-30] MEDS: Enoxaparin(*) 40 MG/0.4 ML SYR SUBCUT SCH (05:44)
[2019-03-30] MEDS: Mometasone/Formoter 200/5 MDI INH SCH ×2 (07:52→20:08)
--- NOTE | 2019-03-30 08:12 | HP ---
CC: Dr. Agustin Peterson; Dr. Jose Bautista* ADMISSION HISTORY AND PHYSICAL: DATE OF ADMISSION: 03/30/19 CHIEF COMPLAINT: Generalized weakness and malaise, and decreased appetite for over 2 weeks. HISTORY OF PRESENT ILLNESS: This is a 68-year-old female with past medical history of multiple myeloma diagnosed over a year ago, status post radiation to the T11 to L2 for impending cord compression in that region, also underwent a right femoral IM nailing prophylactically for lytic lesions or possible fracture and status post radiation to the right femur, and history of chemotherapy and radiation. I had finished her radiation, but was noted to be not eating and had called the suicide hotline multiple times according to the ER report. The patient herself is a very poor historian and would constantly jump topics and her facial expressions also changed from depressive and sad, almost crying to florid laughter. It was difficult to keep her in focus with the questioning. Although she followed commands, she was not a very good historian due to her tangential thoughts. She denies any suicidal or homicidal ideation at this point. She denies any symptoms whatsoever and stated that her friends brought her in because they were concerned that she was feeling weak. She also stated that she does not have a bateman to her house, so even though she was cleared from psychiatry point of view, she could not be safely sent home and the ER requested a social admission. PAST MEDICAL HISTORY: Multiple myeloma, status post radiation to T12 to L2 for impending cord compression and radiation to the right femoral region for lytic lesions, status post intramedullary nailing for prevention of any fracture, history of depression in the past and bipolar disorder, asthma, and anxiety disorder. She also states that she feels depressed due to low sunlight, likely a component of seasonal affective disorder. PAST SURGICAL HISTORY: She has had . HOME MEDICATIONS: The patient is unable to recollect. The ones that are on the computer, as obtained by the ER nurse, were her list of medications that the friends brought with them from January of 2018. This included: 1. Lidocaine patch. 2. Ondansetron. 3. Morphine sulfate. 4. Singulair. 5. Symbicort. 6. Senna. 7. Lorazepam. 8. ProAir. 9. Tylenol. 10. Ultram. ALLERGIES: The patient is documented to be allergic to ASPIRIN and CODEINE. FAMILY HISTORY: No history of any malignancies. SOCIAL HISTORY: She was originally born in [place], moved to [place]. Quit smoking 40 years ago. States that she only drinks alcohol occasionally socially and she stated that the last wine she had was very long ago, and after a long thinking, the patient was unable to recollect when it was. She otherwise denies any other drug use. She is . Lives alone. 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 She has no blood relative in [place]. States that every one else lives in [place] and her only close friends are the ones from the religious she attends to including Regina Orlando and Faye who brought her in today for evaluation. She otherwise wishes to be a full code, but was having difficult time assigning a healthcare proxy. REVIEW OF SYSTEMS: A 14-point review of systems was otherwise negative, but the patient was also having a flight of ideas and tangential thoughts, so it is difficult to assess and get her to focus on things. PHYSICAL EXAMINATION GENERAL: The patient is actually awake, alert, and oriented to time, place, and person, but as mentioned she does have some tangential thoughts and mood swings and emotional swings. VITAL SIGNS: Temperature was documented at 98.9, BP was noted to be 156/97, heart rate 77, respirations 15, saturating 100% on room air. HEAD AND NECK: Atraumatic, normocephalic. Bilateral pupils are reactive. Oral mucosa was dry. Neck: Supple. No jugular venous distention. LUNGS: Clear to auscultation bilaterally. No wheezing, rhonchi or rales. HEART: S1, S2. Regular rate and rhythm. ABDOMEN: Soft, nontender, nondistended. EXTREMITIES: No cyanosis, clubbing, or edema. DIAGNOSTIC STUDIES/LAB DATA: CBC was unremarkable. Comprehensive metabolic panel was unremarkable except for minimally low random magnesium at 1.8. Three sets of cardiac enzymes were noted to be negative. LFTs unremarkable. TSH normal. Urinalysis was low specific gravity, but otherwise clear. No leuk esterase or nitrite. Urine drug screen was negative. Salicylate, Tylenol, and alcohol level were undetectable. EKG showed sinus rhythm at 32 beats per minute. When compared to her EKG from November 2017, the overall waveform is very similar, but the rate was tachycardic in the older EKG. IMPRESSION: This is a 68-year-old female with a history of multiple myeloma, status post radiation, chemo and surgeries, depression/bipolar disorder, anxiety , and asthma, here due to 2 weeks of no appetite with inability to care for self at home and generalized weakness and fatigue, and suicidal ideation according to some reports with no access to her home as she has lost her bateman. ASSESSMENT AND PLAN: 1. Social admission for placement as the patient is unable to care for self and does not have access to her home. I will consult social worker psychiatric to evaluate the patient to see if any further help could be given to the patient's day-to- day activities per social worker psychiatric recommendation. 2. Flight of ideas and emotions, questionable flare-up of her bipolar disorder given she did have suicidal ideations according to friend and called suicidal hotline over the last 2 weeks. We will see if Psychiatry has any input as to any medical optimizations to control her mood and emotions. 3. History of asthma. Restart home medications. 4. History of multiple myeloma, status post radiation and chemo. We will try to obtain proper list of her home medications to see if the patient was on the Revlimid and if she would benefit from restarting Revlimid. 5. DVT prophylaxis. Subcu Lovenox. 6. Code status. The patient wishes to be full code, but is unsure about healthcare proxy at this point. [id number]/[facility] #: [id number] MTDD
[2019-03-30] MEDS: Senna TAB 8.6 mg* TAB PO SCH (08:40)
[2019-03-30] MEDS: Montelukast Sodium TAB* 10 MG PO SCH (08:40)
--- NOTE | 2019-03-30 11:01 | PN ---
Progress Note - Progress Note Date of Service: 03/30/19 SOAP: Subjective: [Maru is well known to the oncology clinic, treated for multiple myeloma. She was brought to the ER last night by a concerned friend. Speaking with the patient, it sounds like she did not leave her apartment for at least 2 weeks. She had lost the bateman to her building and apartment and didn't feel like she could leave as she would be unable to get back in. She had ordered some speciality foods through [employer] that arrived and otherwise was eating very little over the period of time. This morning, she reports feeling much better. She feels like she is safe in the hospital, but was not feeling safe at home. ] Objective: [ Vital Signs: Temp Pulse Resp BP Pulse Ox 98.8 F 78 22 137/82 100 03/30/19 08:17 03/30/19 08:17 03/30/19 08:17 03/30/19 08:17 03/30/19 08:17 Acetaminophen (Tylenol Tab*) 975 mg PO TID PRN PRN Reason: PAIN Albuterol (Ventolin Hfa Inhaler*) 2 puff INH Q6HR PRN PRN Reason: SHORTNESS OF BREATH Enoxaparin Sodium (Lovenox(*)) 40 mg SUBCUT 0900 [facility] Last Admin: 03/30/19 05:44 Dose: 40 mg Sodium Chloride (Ns 0.9% 1000 Ml) 1,000 mls @ 75 mls/hr IV PER RATE [facility] Last Admin: 03/30/19 05:43 Dose: 75 mls/hr Mometasone Furoate/Formoterol Fumar (Dulera 200/5 Mdi*) 2 puff INH BID YINA; Protocol Last Admin: 03/30/19 07:52 Dose: 2 puff Montelukast Sodium (Singulair Tab*) 10 mg PO DAILY [facility] Last Admin: 03/30/19 08:40 Dose: 10 mg Senna (Senokot 8.6 Mg Tab*) 1 tab PO DAILY [facility] Last Admin: 03/30/19 08:40 Dose: 1 tab Tramadol HCl (Ultram*) 50 mg PO TID PRN PRN Reason: PAIN - MODERATE Laboratory Results - last 24 hr 03/29/19 03/29/19 03/29/19 18:26 18:26 18:26 WBC 3.8 RBC 4.35 Hgb 13.4 Hct 40 MCV 93 MCH 31 MCHC 33 RDW 14 Plt Count 177 MPV 6.4 L Neut % (Auto) 56.5 Lymph % (Auto) 30.9 Stark % (Auto) 9.5 Eos % (Auto) 1.5 Baso % (Auto) 1.6 Absolute Neuts (auto) 2.2 Absolute Lymphs (auto) 1.2 Absolute Monos (auto) 0.4 Absolute Eos (auto) 0.1 Absolute Basos (auto) 0.1 Absolute Nucleated RBC 0.0 Nucleated RBC % 0.2 Sodium 135 Potassium 4.3 Chloride 104 Carbon Dioxide 26 Anion Gap 5 BUN 11 Creatinine 0.88 Est GFR ( Amer) 77.1 Est GFR (Non-Af Amer) 63.7 BUN/Creatinine Ratio 12.5 Glucose 95 Lactic Acid 1.4 Calcium 9.5 Magnesium 1.8 L Total Bilirubin 0.60 AST 17 ALT 25 Alkaline Phosphatase 47 Troponin I 0.01 C-Reactive Protein < 1.00 Total Protein 6.4 Albumin 4.2 Globulin 2.2 Albumin/Globulin Ratio 1.9 TSH 0.55 Urine Color Urine Appearance Urine pH Ur Specific [place] Urine Protein Urine Ketones Urine Blood Urine Nitrate Urine Bilirubin Urine Urobilinogen Ur Leukocyte Esterase Urine Glucose Urine Ascorbic Acid Salicylates < 2.50 Urine Opiates Screen Acetaminophen < 15 Ur Barbiturates Screen Ur Phencyclidine Scrn Ur Amphetamines Screen U Benzodiazepines Scrn Urine Cocaine Screen U Cannabinoids Screen Serum Alcohol < 10 03/29/19 03/29/19 03/29/19 21:08 21:21 21:21 WBC RBC Hgb Hct MCV MCH MCHC RDW Plt Count MPV Neut % (Auto) Lymph % (Auto) Stark % (Auto) Eos % (Auto) Baso % (Auto) Absolute Neuts (auto) Absolute Lymphs (auto) Absolute Monos (auto) Absolute Eos (auto) Absolute Basos (auto) Absolute Nucleated RBC Nucleated RBC % Sodium Potassium Chloride Carbon Dioxide Anion Gap BUN Creatinine Est GFR ( Amer) Est GFR (Non-Af Amer) BUN/Creatinine Ratio Glucose Lactic Acid Calcium Magnesium Total Bilirubin AST ALT Alkaline Phosphatase Troponin I 0.01 C-Reactive Protein Total Protein Albumin Globulin Albumin/Globulin Ratio TSH Urine Color Straw Urine Appearance Clear Urine pH 7.0 Ur Specific [place] 1.005 L Urine Protein Negative Urine Ketones Negative Urine Blood Negative Urine Nitrate Negative Urine Bilirubin Negative Urine Urobilinogen Negative Ur Leukocyte Esterase Negative Urine Glucose Negative Urine Ascorbic Acid * A Salicylates Urine Opiates Screen None detected Acetaminophen Ur Barbiturates Screen None detected Ur Phencyclidine Scrn None detected Ur Amphetamines Screen None detected U Benzodiazepines Scrn None detected Urine Cocaine Screen None detected U Cannabinoids Screen None detected Serum Alcohol 03/30/19 00:16 WBC RBC Hgb Hct MCV MCH MCHC RDW Plt Count MPV Neut % (Auto) Lymph % (Auto) Stark % (Auto) Eos % (Auto) Baso % (Auto) Absolute Neuts (auto) Absolute Lymphs (auto) Absolute Monos (auto) Absolute Eos (auto) Absolute Basos (auto) Absolute Nucleated RBC Nucleated RBC % Sodium Potassium Chloride Carbon Dioxide Anion Gap BUN Creatinine Est GFR ( Amer) Est GFR (Non-Af Amer) BUN/Creatinine Ratio Glucose Lactic Acid Calcium Magnesium Total Bilirubin AST ALT Alkaline Phosphatase Troponin I 0.01 C-Reactive Protein Total Protein Albumin Globulin Albumin/Globulin Ratio TSH Urine Color Urine Appearance Urine pH Ur Specific [place] Urine Protein Urine Ketones Urine Blood Urine Nitrate Urine Bilirubin Urine Urobilinogen Ur Leukocyte Esterase Urine Glucose Urine Ascorbic Acid Salicylates Urine Opiates Screen Acetaminophen Ur Barbiturates Screen Ur Phencyclidine Scrn Ur Amphetamines Screen U Benzodiazepines Scrn Urine Cocaine Screen U Cannabinoids Screen Serum Alcohol Exam: Gen: slightly disheveled appearing 68 yo female in NAD Resp: easy, regular respirations Psych: alert, appropriate conversation, completely oriented. Easily distracted , but conversation eventually circles back to original thought] Assessment: [This is a 68 yo female with multiple myeloma s/p transplant June 2018 who presented to the ER last night due to friend's concern that she was not appropriately caring for herself at home. She has a history of bipolar disorder. She was previously established with psychiatry in the community, but that physician reportedly retired and she has no regular psychiatric provider at this time. She admits that she remembers very little of the last few weeks. She felt as if a "piece of the puzzle in her brain was missing" and she simply did not care to continue to make an effort. It sounds like she has neglected basic self care over that period of time. Speaking with her today, she appears to be at her baseline mental status. She recognizes that she needs help and that is why she reached out to her friend that brought her here.] Plan: [1. Depression - h/o bipolar disorder - admitted after a period of what sounds to be severe depression - no SI/HI - psychiatric consultation pending 2. Multiple myeloma - s/p ASCT 06/2018 - she has yet to start maintenance Revlimid despite having the medication in her possession - she has missed several appointments in the last several months - check SPEP, light chains, QUIGs to ensure she has not relapsed during this extended lapse in therapy Dispo: SW and psychiatry consults pending. Multiple barriers to a successful discharge, but no acute medical concerns]
--- NOTE | 2019-03-30 17:48 | CONSULT ---
Consult Consult: 68yo [place] female with history of bipolar disorder who came to ED via friends due to concern about her living situation. ATTENDING PROVIDER: NUHA Donald CONSULTING PROVIDER: CARLO Isabel HPI: Psychiatry is asked to see "Tram," a 68yo , retired, domiciled female with history of bioplar d/o and recent treatments for multiple myeloma. She was brought to the hospital by friends due to their concern about her presentation and living situation. There were reports that she was disorganized , as well as calling the suicide hotline. She did not meet criteria for emergency psychiatric hospitalization and was admitted to the floor. Upon presentation, patient introduces herself at "Tram" and explains the familial history of the name Estrellita. She is pleasantly talkative and quite articulate. She has an excellent memory and tells details of childhood and recent past. She states that she had been feeling depressed of late but denies suicidality. 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 She states she has been to psychiatric clinicians who have retired. She is interested in returning to counseling. MSE: Patient is an 68yo black female, who appears stated age. She is wearing hospital gown and sitting up in hospital bed. She is pleasant and talkative. She is A+Ox3. Eye contact is good. Speech is copious and articulate. Concentration good. Memory 3/3. Mood is euthymic with full range of affect. No abnormal psychomotor activity noted. Thought process is logical and coherent. Thought content is negative for SI/HI or passive wish. She denies AH or VH or delusions. Insight and judgment are good. Cognitively, she is awake with what would appear to be an average intellect. PLAN: Patient may benefit from low dose quetiapine per her consent. Hardener Helper recommends she be given a referral to [facility] for counseling. She can be referred to a psychiatric prescriber within that agency if the need arises. Thank you for allowing me to be a part of this endearing woman's care. Psychiatry will sign off but is available for further consult, as needed.
[2019-03-30] MEDS: traMADol TAB* 50 MG PO PRN (23:48)
[2019-03-31 05:36] LABS: ABS Eosinophils 0.1 10^3/ul (0-0.6); ABS Monocytes 0.3 10^3/ul (0-0.8); ABS Neutrophils 1.7 10^3/ul (1.5-7.7); Eosinophil % 1.9 %; Hematocrit 37 % (35-47); Hemoglobin 12.4 g/dL (12.0-16.0); Lymphocyte % 33.2 %; Mean Corpuscular HGB Conc 33 g/dL (31-36); Mean Corpuscular Hemoglobin 31 pg (27-31); Mean Corpuscular Volume 92 fL (80-97); Mean Platelet Volume 6.8 fL (7.4-10.4); Nucleated Red Blood Cells % 0.1; Platelet Count 164 10^3/uL (150-450); Red Blood Count 4.07 10^6 /uL (3.70-4.87); Red Cell Distribution Width 14 % (10-15); White Blood Count 3.1 10^3/uL (3.5-10.8)
[2019-03-31 05:52] LABS: Calcium 9.5 mg/dL (8.6-10.3); EGFR African American 91.3 (>60); EGFR Non-African American 75.5 (>60); Potassium 4.1 mmol/L (3.5-5.0)
[2019-03-31] MEDS: Montelukast Sodium TAB* 10 MG PO SCH (07:27)
[2019-03-31] MEDS: Senna TAB 8.6 mg* TAB PO SCH (07:27)
[2019-03-31] MEDS: Enoxaparin(*) 40 MG/0.4 ML SYR SUBCUT SCH (07:29)
[2019-03-31] MEDS: Mometasone/Formoter 200/5 MDI INH SCH (07:34)
[2019-03-31] MEDS: NS 0.9% 1000 ML** 1,000 ML IV SCH (08:56)
[2019-03-31] MEDS: traMADol TAB* 50 MG PO PRN (13:30)
[2019-03-31 15:36] VITALS: BP 130/81
--- NOTE | 2019-04-01 00:24 | DS ---
CC: Dr. Agustin Peterson; Dr. Jose Bautista* DISCHARGE SUMMARY: DATE OF ADMISSION: 03/30/19. DATE OF DISCHARGE: 03/31/19. PRIMARY CARE PROVIDER: Dr. Agustin Peterson. PRIMARY ONCOLOGIST: Dr. Jose Bautista. CONSULTING PSYCHIATRIC PROVIDER: Eladia Muñoz NP ATTENDING PHYSICIAN: Dr. Aida Fonseca* (dictated by NUHA Duran). DISCHARGING PROVIDER: NUHA Duran PRIMARY DISCHARGE DIAGNOSES: 1. Severe depression with neglect of self care. 2. Bipolar disorder. 3. Multiple myeloma, status post transplant June of 2018, with no evidence of relapse at the time of discharge. DISCHARGE MEDICATIONS: 1. Acetaminophen 1000 mg p.o. 3 times daily as needed for pain or fever. 2. Albuterol 2 puffs inhaled q.6 hours as needed for shortness of breath. 3. Symbicort 2 puffs inhaled twice daily. 4. Lidocaine patch applied transdermally every 12 hours as needed. 5. Lorazepam 0.5 mg p.o. q.4 hours as needed for anxiety. 6. Singulair 10 mg p.o. daily. 7. Morphine sulfate 10 mg p.o. q.4 hours as needed for pain. 8. Zofran 4 mg p.o. q.6 hours as needed for nausea. 9. Senna 1 tablet p.o. daily. 10. Ultram 50 mg p.o. 3 times daily as needed for more moderate pain. HOSPITAL IMAGING: None. HOSPITAL COURSE: This is a 68-year-old female known to the oncology service for multiple myeloma, status post transplant in June of 2018. She has missed multiple recent doctors' appointment and is yet to start recommended maintenance Revlimid, who presented to the emergency department with her good friend for concerns for severe depression and neglect of self care over the prior few weeks. The patient is unclear on the details of exactly what happened over those few weeks, but she does recall getting frustrated by several inciting factors and felt as if a piece of her brain was missing and she was unable to complete the puzzle. She then felt that there was no need for her to continue to make an effort and recalls spending most of her time sleeping. She did not leave her apartment for at least 2 weeks and eventually reached out to a close friend when she realized that she needed help. Her friend found no food in the house, the patient was disheveled and had obviously not bathed in quite some time and was found to have large amounts of trash throughout her apartment. These things were very uncharacteristic for her. She was subsequently brought to the emergency department for further evaluation. The patient had contacted the suicide hotline on multiple occasions over the couple of weeks, but did not express any suicidal ideations at the time of calling or in the emergency department. Initial evaluation from psychiatry felt that she was safe for discharge, but the emergency department provider and hospital medicine provider felt uncomfortable discharging her directly from the emergency department and recommended hospitalization. The patient was brought into the hospital for a period of observation and seen by psychiatry. She is as mentioned above well known to the oncology service and seems to be at her baseline mental status. She acknowledged to be quite disorganized and neglecting herself over the last couple of weeks, but felt safe being in the hospital and felt that she was back on track. Psychiatry did not feel that there was an indication for inpatient psychiatric management and suggested she could trial Seroquel at bedtime to aid with sleep, but the patient declined this. DISPOSITION AND FOLLOWUP PLAN: After much coordination from social work, the patient is being discharged to home in stable condition. Her close friend will drive her home and help her to get groceries. She has an appointment with [facility] for 04/03/19. She has been encouraged to start her Revlimid as directed on multiple occasions and follow up with Dr. Bautista in 2 weeks. SPEP, light chains and quantitative immunoglobulins were collected and pending during this hospitalization to evaluate for relapse, although there is no clinical evidence of this. NUHA DURAN [id number]/[facility] #: [id number] THOMAS
[2019-04-01 14:44] LABS: Immunoglobulin A 22 mg/dL (61 - 356); Immunoglobulin G 578 mg/dL (767 - 1590); Immunoglobulin M 19 mg/dL (37 - 286); Kappa Free Light Chain 3.46 mg/dL; Lambda Free Light Chain 1.37 mg/dL
[2019-04-01 15:44] LABS: Albumin 3.1 g/dL (3.4-4.7); Albumin/Globulin Ratio 1.27; Gamma Globulin 0.6 g/dL (0.6-1.6); Total Protein(PEP) 5.5 g/dL (6.3 - 7.9)
== END 2019-03-31 18:20 | disposition home or self-care (01) ==
LOC: ED 17:40 → MED 03-30 03:31
PROVIDERS: ADMIT Internal Medicine; ATTEND Internal Medicine Hematology & Oncology
DX: F32.9 Major depressive disorder, single episode, unspecified (principal); F31.9 Bipolar disorder, unspecified; Z79.899 Other long term (current) drug therapy; R94.31 Abnormal electrocardiogram [ECG] [EKG]; Z94.84 Stem cells transplant status; Z85.79 Personal history of other malignant neoplasms of lymphoid, hematopoietic and related tissues
CPT/HCPCS: 36415; 80048; 80053; 80307; 80320; 80329; 81003; 82784; 83605; 83735; 83883; 84155; 84165; 84443; 84484; 85025; 86140; 93005; 94640; 96361; 96365; 96372; 99226; 99285; A9270-GY; G0378; G0480; J1650; J3475

== ENCOUNTER 2020-12-03 11:50 | Observation (INO) ==
[~2020-12-03 11:50] MED LIST: Buffered Lidocaine 1% SYRIN 1 ml INTRADERM ONE; Lactated Ringers 1000 ml BAG 1,000 ML IV SCH; Lidocaine 2% PF 5 ML VIAL ONE; Midazolam 2 mg/2 ml VIAL 1 mg/ml 2 ml VIAL (2 mg) ONE; Propofol 10 MG/ML 20 ML BTL ONE; Rocuronium 50 mg VIAL 10 mg/ml 5 ml VIAL (50 mg) ONE; fentaNYL 250 mcg/5 ml 50 MCG/ML 5 ml VIAL (250 MCG) ONE
[2020-12-03] MEDS ORDERED: Benzocaine/Butamben/Tetracain (CETACAINE - SINGLE USE) 5 gm TOPICAL ONE (13:33)
[2020-12-03] MEDS ORDERED: HYDROmorphone 1 MG/1 ML SYRINGE IV PRN (15:25)
[2020-12-03] MEDS ORDERED: Naloxone 0.4 mg VIAL 0.4 mg/ml 1 ml VIAL IV PRN (15:25)
[2020-12-03] MEDS ORDERED: Prochlorperazine 5 mg/ml 2 ml VIAL (10 mg) IV PRN (15:25)
[2020-12-03] MEDS ORDERED: diPHENhydraMINE IV 50 MG/ML 1 ml VIAL (BENADRYL) IV PRN (15:25)
[2020-12-03] MEDS ORDERED: Ondansetron 4 mg VIAL 2 MG/ML 2 ml VIAL ONE (15:31)
[2020-12-03] MEDS ORDERED: Dexamethasone IV 4 MG/ML VIAL 1 ml VIAL ONE (15:31)
[2020-12-03] MEDS ORDERED: Succinylcholine 200 mg VIAL 20 mg/ml 10 ml VIAL (200 mg) ONE (15:51)
[2020-12-04 08:12] VITALS: BP 130/84
== END 2020-12-04 12:15 | disposition home or self-care (01) ==
LOC: SSU 11:50 → OR 11:50 → SUATTDRO 17:30
PROVIDERS: ADMIT Internal Medicine; ATTEND Hospitalist